=== PATIENT | male | born 1945 | race Caucasian/White ===

== ENCOUNTER 2020-03-03 16:54 | Emergency (ER) | payer MEDICARE, OTHER, SELFPAY ==
[2020-03-03 17:00] VITALS: BP 177/81; PULSE 80; RESP 22; TEMP 36.7; O2SAT 98
--- NOTE | 2020-03-03 17:14 | DI.RAD.S_ITS ---
PROCEDURE: XR CHEST 2V INDICATIONS: sob, productive cough TECHNIQUE: 2 views of the chest were acquired. COMPARISON: None. FINDINGS: Surgical changes and devices: None. Lungs and pleura: Subtle areas of increased density are identified within the right infrahilar region and the left costophrenic angle. No large effusion or pneumothorax is evident. Mediastinum: Mediastinal contours are normal. Heart size is normal. Bones and chest wall: No suspicious bony abnormalities. Multiple anterior discussed with the complexes are identified, suggesting diffuse idiopathic skeletal hyperostosis. Soft tissues appear unremarkable. IMPRESSION: Probable bibasilar pneumonia. Dictated by: Mason Hilton M.D. on 03/03/2020 at 16:48 Approved by: Mason Hilton M.D. on 03/03/2020 at 16:52
--- NOTE | 2020-03-03 17:45 | ED_ITS ---
HPI - SOB/Dyspnea <Margarita Maldonadomer, [employer] - Last Filed: 03/03/20 19:55> General Chief Complaint: Shortness of Breath/Dyspnea Stated Complaint: Thinks Pneumonia, SOB, Cough Time Seen by Provider: 03/03/20 17:05 Source: patient Mode of arrival: Ambulatory Limitations: no limitations History of Present Illness HPI Narrative: The patient is a 74-year-old male former smoker who denies pertinent medical history presents with a chief complaint of 7 days of productive cough. He states on Wednesday started having fevers 101, was seen at [facility] and discharged. He states he has been self warranting at home since the of last month, though he has had family members go at discharge often bring him back things. He denies any nausea vomiting or diarrhea. He denies any chest pain. He does complain of tight breathing, productive cough, reported fevers. The patient has not taken anything at home to feel better. He denies any history of COPD, though admits to a 30 year smoking history. He quit in 1991. Related Data Home Medications Medication Instructions Recorded Confirmed MULTIVITAMIN 1 tab PO QDAY #0 12/08/16 05/04/18 cholecalciferol (vitamin D3) 1,000 unit PO QDAY #0 12/08/16 05/04/18 [Vitamin D3] ibuprofen [Advil] 200 mg PO Q4HP PRN #0 12/08/16 05/04/18 carboxymethylcellulose sodium drp #0 02/22/18 05/04/18 [Refresh Tears] vitamin E 400 unit PO QDAY #0 02/22/18 05/04/18 Previous Rx's Medication Instructions Recorded lidocaine 1 josefina R QIDP PRN #30 gm 02/24/18 azithromycin See Rx Instructions .ROUTE 03/03/20 .COMPLEX #6 tab doxycycline hyclate 100 mg PO BID #14 cap 03/03/20 Allergies Allergy/AdvReac Type Severity Reaction Status Date / Time fluticasone Allergy Severe TROUBLE Unverified 05/04/18 14:19 [From FLOVENT DISKUS] BREATHING Penicillins Allergy Severe SWELLING Unverified 05/04/18 14:19 lisinopril [LISINOPRIL] AdvReac Severe IMPAIRED Unverified 05/04/18 14:19 BREATHING mold [MOLD] AdvReac Severe IMPAIRED Unverified 05/04/18 14:19 BREATHING Review of Systems <Margarita Hernandez [facility] - Last Filed: 03/03/20 19:55> Review of Systems Narrative: GENERAL: See HPI HEENT: Denies sinus pain, ear pain, sore throat, difficulty swallowing, dizziness. RESPIRATORY: See HPI CARDIOVASCULAR: Denies chest pain, palpitations, orthopnea, edema, GASTROINTESTINAL: Denies nausea, vomiting, abdominal pain, diarrhea, constipation, melena. : Denies dysuria, frequency, incontinence, hematuria, urinary retention. MUSCULOSKELETAL: denies weakness, joint pain, or bony pain SKIN: Denies rash, skin lesions, or other NEUROLOGIC: Denies weakness, headache, numbness, change in speech, confusion, seizures, incoordination. PSYCHIATRIC: No concerning psychosocial issues. 12 point review of systems is negative except for those stated above Patient History <[facility] Last Filed: 03/03/20 19:55> Social History Smoking Status: Former smoker Smoking Status: Former smoker alcohol intake frequency: holidays/special occasions only Substance Use Type: does not use Exam <Margarita Hernandez [facility] - Last Filed: 03/03/20 19:55> Narrative Exam Narrative: GENERAL: This is a well-nourished, well-developed patient, anxious appearing HEAD: Atraumatic. Normocephalic. No temporal or scalp tenderness. EYES: Pupils equal round and reactive. Extraocular motions intact. No scleral icterus. No injection or drainage. ENT: Nose without bleeding, purulent drainage or septal hematoma. Throat without erythema, tonsillar hypertrophy or exudate. Uvula midline. Airway patent. NECK: Trachea midline. No JVD or lymphadenopathy. Supple, nontender, no meningeal signs. CARDIOVASCULAR: Regular rate and rhythm RESPIRATORY: Clear to auscultation. Breath sounds equal bilaterally. No wheezes, rales, or rhonchi. Speaking tangential, very full sentences. No increased re spiratory effort. Laying relaxed in bed. No accessory muscle use. GASTROINTESTINAL: Abdomen soft, non-tender, nondistended. No hepato- splenomegaly, or palpable masses. No guarding. EXTREMITIES: No clubbing, cyanosis, or edema. No joint tenderness, effusion, or edema noted. BACK: Nontender without deformity or crepitance. No flank tenderness. NEURO: AOx3. SKIN: No rash or erythema on visible skin Initial Vital Signs Initial Vital Signs: Vital Signs Temperature 98.0 F 03/03/20 17:00 Pulse Rate 80 03/03/20 17:00 Respiratory Rate 22 03/03/20 17:00 Blood Pressure 177/81 H 03/03/20 17:00 Pulse Oximetry 98 03/03/20 17:00 <Kenny Segal DO - Last Filed: 03/04/20 03:03> Initial Vital Signs Initial Vital Signs: Vital Signs Temperature 98.0 F 03/03/20 17:00 Pulse Rate 80 03/03/20 17:00 Respiratory Rate 22 03/03/20 17:00 Blood Pressure 177/81 H 03/03/20 17:00 Pulse Oximetry 98 03/03/20 17:00 Scores <JULIA Flynn - Last Filed: 03/03/20 19:55> CURB-65 Confusion: No BUN >19mg/dL (>7mmol/L): No Respiratory rate greater or equal to 30: No SBP <90mmHg or DBP less or equal to 60mmHg: No Age 65 or Older: Yes CURB-65 Total: 1 Score 0-1 Outpatient care, Score 2 Inpt vs. Obs, Score 3 or over Inpt admit with ICU for score of 4-5 GCS [place] coma scale eye opening: Spontaneous Dorys coma scale verbal response: Orientated Dorys coma scale motor response: Obey commands Dorys coma scale total score: 15 Course <JULIA Flynn - Last Filed: 03/03/20 19:55> Orders Ordered: ED Orders 03/03/20 18:15 Complete Blood Count AUTO DIFF Stat Comprehensive Metabolic Panel Stat Magnesium Stat NT-proBNP (BNP-Adult 18+) Stat Discontinued Medications Doxycycline Hyclate (Vibramycin) 100 mg PO NOW ONE Stop: 03/03/20 19:00 Last Admin: 03/03/20 19:33 Dose: 100 mg Documented by: PRETTY Reevaluation(s) Reevaluation #1: Discussed x-ray findings with patient and concern for pneumonia. Covid 19 was swab done. Patient remains oxygenating well in the emergency department Time: 18:12 Vital Signs Vital signs: Vital Signs - 8 hr 03/03/20 19:14 Pulse Rate 62 Pulse Oximetry 97 <Kenny Segal DO - Last Filed: 03/04/20 03:03> Orders Ordered: ED Orders 03/03/20 18:15 Complete Blood Count AUTO DIFF Stat Comprehensive Metabolic Panel Stat Magnesium Stat NT-proBNP (BNP-Adult 18+) Stat Discontinued Medications Doxycycline Hyclate (Vibramycin) 100 mg PO NOW ONE Stop: 03/03/20 19:00 Last Admin: 03/03/20 19:33 Dose: 100 mg Documented by: PRETTY Vital Signs Vital signs: Vital Signs - 8 hr 03/03/20 19:14 Pulse Rate 62 Pulse Oximetry 97 MDM - SOB/Dyspnea <ALICE FlynnBC - Last Filed: 03/03/20 19:55> Lab Data Result diagrams: 03/03/20 18:15 03/03/20 18:15 Labs: Lab Results 03/03/20 03/03/20 Range/Units 18:15 18:15 WBC 6.1 (4.5-11.0) X10^3/uL RBC 4.94 (4.5-5.9) X10^6/uL Hgb 15.2 (13.5-17.5) g/dL Hct 44.7 (41-53) % MCV 90.3 (80-100) fL MCH 30.8 (26-34) PG MCHC 34.0 (30-36) % RDW 13.7 (11.6-14.8) % Plt Count 260 (150-400) X10^3/uL Neut % (Auto) 63.1 (50-75) % Lymph % (Auto) 26.0 (25-40) % Lamb % (Auto) 7.9 (3-14) % Eos % (Auto) 2.1 (2-4) % Baso % (Auto) 0.9 (0-2) % Neut # (Auto) 3800 (5773-0228) /uL Lymph # (Auto) 1600 (5361-1264) /uL Lamb # (Auto) 500 (0-900) /uL Eos # (Auto) 100 (0-450) /uL Baso # (Auto) 100 (0-100) /uL Sodium 142 (137-145) mmol/L Potassium 4.4 (3.4-5.1) mmol/L Chloride 106 (98-107) mmol/L Carbon Dioxide 27 (22-32) mmol/L BUN 16 (9-20) mg/dL Creatinine 0.79 (0.66-1.25) mg/dL Estimated GFR > 60.0 (>60) mL/min BUN/Creatinine Ratio 20.3 (6-22) Glucose 104 (80-110) mg/dL Calcium 10.6 H (8.4-10.2) mg/dL Magnesium 2.5 H (1.6-2.3) mg/dL Total Bilirubin 0.5 (0.2-1.3) mg/dL AST 24 (17-59) IU/L ALT 16 (<50) IU/L Alkaline Phosphatase 58 (38-126) U/L NT-Pro-B Natriuret Pep 101 (<450) pg/mL Total Protein 6.7 (6.3-8.2) g/dL Albumin 4.0 (3.5-5.0) g/dL Globulin 2.7 (1.7-4.1) g/dL Albumin/Globulin Ratio 1.5 (1.0-2.8) Imaging Data Chest x-ray: Radiologist's Impression: [address] [place] [address] XRay Report Signed Patient: Kip Quiles LMR#: [id number] : 4Acct:[id number] Age/Sex: 74 / MDate of Service: 03/03/20 Loc: ED Accession Number: [id number] Procedure: XR chest 2V [facility]ing [facility] PROCEDURE: XR CHEST 2V INDICATIONS: sob, productive cough TECHNIQUE: 2 views of the chest were acquired. COMPARISON: None. FINDINGS: Surgical changes and devices: None. Lungs and pleura: Subtle areas of increased density are identified within the right infrahilar region and the left costophrenic angle. No large effusion or pneumothorax is evident. Mediastinum: Mediastinal contours are normal. Heart size is normal. Bones and chest wall: No suspicious bony abnormalities. Multiple anterior discussed with the complexes are identified, suggesting diffuse idiopathic skeletal hyperostosis. Soft tissues appear unremarkable. IMPRESSION: Probable bibasilar pneumonia. Dictated by: Mason Hilton M.D. on 03/03/2020 at 16:48 Approved by: Mason Hilton M.D. on 03/03/2020 at 16:52 ECG Data Attestation: I personally reviewed and interpreted this ECG as follows: Interpretation: SR 67. P.r. interval 169. QRS 124. Viewed by Dr. Puga no prior EKGs MDM Narrative Medical decision making narrative: The patient is a 74-year-old male who presents with a chief complaint of a productive cough as well as shortness of breath. His lab work is overall benign, no leukocytosis, negative BNP, good renal function. His chest x-ray is concerning for bibasilar pneumonia, given his complaints of cough, shortness of breath and fever he was tested for coronavirus. He does not need to be hospitalized as per curb 65 criteria. He is oxygenating well in the emergency department, was evaluated by respiratory therapist as well. I discussed at length the importance of following up with primary care provider in the next few days. Discussed coming back to the emergency department for any acute concerns such as increased shortness of breath etcetera. I did discuss with the patient that he has to self isolate until his covid results come back either positive or negative, covering cough, etc.. Patient has no questions or concerns upon discharge and states understanding of return precautions as well as follow-up care. <Kenny Segal, DO - Last Filed: 03/04/20 03:03> Lab Data Labs: Lab Results 03/03/20 03/03/20 Range/Units 18:15 18:15 WBC 6.1 (4.5-11.0) X10^3/uL RBC 4.94 (4.5-5.9) X10^6/uL Hgb 15.2 (13.5-17.5) g/dL Hct 44.7 (41-53) % MCV 90.3 (80-100) fL MCH 30.8 (26-34) PG MCHC 34.0 (30-36) % RDW 13.7 (11.6-14.8) % Plt Count 260 (150-400) X10^3/uL Neut % (Auto) 63.1 (50-75) % Lymph % (Auto) 26.0 (25-40) % Lamb % (Auto) 7.9 (3-14) % Eos % (Auto) 2.1 (2-4) % Baso % (Auto) 0.9 (0-2) % Neut # (Auto) 3800 (4674-8930) /uL Lymph # (Auto) 1600 (5042-1751) /uL Lamb # (Auto) 500 (0-900) /uL Eos # (Auto) 100 (0-450) /uL Baso # (Auto) 100 (0-100) /uL Sodium 142 (137-145) mmol/L Potassium 4.4 (3.4-5.1) mmol/L Chloride 106 (98-107) mmol/L Carbon Dioxide 27 (22-32) mmol/L BUN 16 (9-20) mg/dL Creatinine 0.79 (0.66-1.25) mg/dL Estimated GFR > 60.0 (>60) mL/min BUN/Creatinine Ratio 20.3 (6-22) Glucose 104 (80-110) mg/dL Calcium 10.6 H (8.4-10.2) mg/dL Magnesium 2.5 H (1.6-2.3) mg/dL Total Bilirubin 0.5 (0.2-1.3) mg/dL AST 24 (17-59) IU/L ALT 16 (<50) IU/L Alkaline Phosphatase 58 (38-126) U/L NT-Pro-B Natriuret Pep 101 (<450) pg/mL Total Protein 6.7 (6.3-8.2) g/dL Albumin 4.0 (3.5-5.0) g/dL Globulin 2.7 (1.7-4.1) g/dL Albumin/Globulin Ratio 1.5 (1.0-2.8) Discharge Plan Departure Patient Disposition: Home Clinical Impression: Community acquired pneumonia Qualifiers: Laterality: unspecified laterality Qualified Code(s): J18.9 - Pneumonia, uns pecified organism Discharge Date/Time: 03/03/20 19:45 Instructions: How to Use an Incentive Spirometer, DI for Pneumonia -- Adult, DI for Cough -- Adult Activity Restrictions/Additional Instructions: Thank you for trusting us with your care today. Your chest x-ray is indicating pneumonia in the bases of your lungs. I have sent a prescription for 2 different antibiotics to [facility] pharmacy. Please take these with probiotics or yogurt. You have also received teaching from a respiratory therapist on several respiratory devices. Please use these devices in order to help keep your lungs open. We also tested you for Covid19 As discussed, please self quarantine until the results come back either positive or negative. We will call you. Please wash your hands for your cough and sneezes. Please follow-up with primary care provider in the next few days. Please come back to the emergency department for any acute concerns such as significant shortness of breath etcetera Prescriptions: New azithromycin 250 mg tablet See Rx Instructions .ROUTE .COMPLEX Qty: 6 RF: 0 doxycycline hyclate 100 mg capsule 100 mg PO BID Qty: 14 RF: 0 No Action MULTIVITAMIN 1 tab PO QDAY Qty: 0 RF: 0 cholecalciferol (vitamin D3) [Vitamin D3] 1,000 UNIT tablet 1,000 unit PO QDAY Qty: 0 RF: 0 ibuprofen [Advil] 200 MG tablet 200 mg PO Q4HP PRNQty: 0 RF: 0 vitamin E 400 UNIT capsule 400 unit PO QDAY Qty: 0 RF: 0 carboxymethylcellulose sodium [Refresh Tears] 15 ML drops Qty: 0 RF: 0 lidocaine 5 % cream 1 josefina R QIDP PRNQty: 30 RF: 2 Referrals: [facility] [Provider Group] <Kenny Segal DO - Last Filed: 03/04/20 03:03> Cosign ED Attending Alexature Attestation: I was immediately available in the department for consultation. This documentation has been reviewed and I agree with assessment and plan. Supervised by Kenny Segal DO
[2020-03-03 18:00] VITALS: BP 161/74; PULSE 65; RESP 19; O2SAT 97
[2020-03-03 18:29] LABS: Add Manual Diff / Slide Review NO; Basophils Absolute Auto 100 /uL (0-100); Basophils Percent Auto 0.9 % (0-2); Eosinophils Absolute Auto 100 /uL (0-450); Eosinophils Percent Auto 2.1 % (2-4); Hematocrit 44.7 % (41-53); Hemoglobin 15.2 g/dL (13.5-17.5); Lymphocytes Absolute Auto 1600 /uL (1100-4500); Mean Corpuscular Hemoglobin 30.8 PG (26-34); Mean Corpuscular Volume 90.3 fL (80-100); Monocytes Absolute Auto 500 /uL (0-900); Monocytes Percent Auto 7.9 % (3-14); Neutrophils Absolute Auto 3800 /uL (1500-7000); Neutrophils Percent Auto 63.1 % (50-75); Platelet Count 260 X10^3/uL (150-400); Red Blood Cell Count 4.94 X10^6/uL (4.5-5.9); Red Cell Distribution Width 13.7 % (11.6-14.8); White Blood Cell Count 6.1 X10^3/uL (4.5-11.0)
--- NOTE | 2020-03-03 18:35 | PC.NURSE ---
pt reports, had worsening coughing wednesday, seen at [facility], advised to take tylenol and motrin, if not better in 72 hours to follow up with md. pt reports severe coughing today with yellow, to reyes sputum and also with abdominal distention causing shortness of breath, abdominal better at this time. denies fever at home states, 98.0. has not had tylenol for 12 hours.
[2020-03-03 18:36] LABS: Alanine Aminotransferase 16 IU/L (<50); Albumin Globulin Ratio 1.5 (1.0-2.8); Alkaline Phosphatase 58 U/L (38-126); Aspartate Aminotransferase 24 IU/L (17-59); BUN Creatinine Ratio 20.3 (6-22); Bilirubin Total 0.5 mg/dL (0.2-1.3); Blood Urea Nitrogen 16 mg/dL (9-20); Calcium 10.6 mg/dL (8.4-10.2); Carbon Dioxide 27 mmol/L (22-32); Chloride 106 mmol/L (98-107); Estimated Glomerular Filt Rate > 60.0 mL/min (>60); Globulin 2.7 g/dL (1.7-4.1); Glucose 104 mg/dL (80-110); HEMOLYSIS 17 (0-50); Magnesium 2.5 mg/dL (1.6-2.3); Potassium 4.4 mmol/L (3.4-5.1); Sodium 142 mmol/L (137-145); Total Protein 6.7 g/dL (6.3-8.2)
[2020-03-03 18:45] LABS: NT-proBNP (BNP-Adult 18+) 101 pg/mL (<450)
[2020-03-03 19:14] VITALS: PULSE 62; O2SAT 97
[2020-03-03] MEDS: DOXYCYCLINE HYCLATE 100 MG TABLET PO (19:33)
[2020-03-06 01:10] LABS: COVID19 Sendout Not Detected (Not Detected)
== END 2020-03-03 19:45 | disposition home or self-care (01) ==
PROVIDERS: Emergency Provider Nurse Practitioner Family
DX: J18.9 Pneumonia, unspecified organism (principal); R50.9 Fever, unspecified; R06.02 Shortness of breath
CPT/HCPCS: 71046; 80053; 83735; 83880; 85025; 87635; 93005; 94667; 99283; 99284

== ENCOUNTER 2024-07-19 16:49 | Emergency (ER) | payer MEDICARE, OTHER, SELFPAY ==
[2024-07-19 16:52] VITALS: BP 195/79; PULSE 59; RESP 14; TEMP 36.9; O2SAT 98
[2024-07-19 17:35] LABS: Bilirubin Urine UA NEGATIVE (NEGATIVE); Glucose Urine UA NEGATIVE (Negative); Ketones Urine UA NEGATIVE (NEGATIVE); Leukocyte Esterase Urine UA TRACE (NEGATIVE); Nitrite Urine UA NEGATIVE (Negative); Occult Blood Urine UA 3+ (Negative); Protein Urine UA 1+ (Negative); Urobilinogen Urine UA 0.2 E.U./dL (0.2)
[2024-07-19 17:39] LABS: Appearance Urine UA CLOUDY; Color Urine UA GREEN
[2024-07-19 17:43] LABS: Amorphous Sediment Urine 2+; Bacteria Urine Few (2-10); Culture Indicated Urine Specimen Cultured; RBC Urine 30-100/HPF (0-5/HPF); Squamous Epithelial Cell Urine 0-1 /HPF (0-5/HPF); Urine Volume 10mL (spun); WBC Urine 0-1/HPF (0-5/HPF)
--- NOTE | 2024-07-19 18:43 | ED.GENADULT ---
HPI - General Adult General Chief complaint: Urogenital-Male Stated complaint: blood in urine t-1 Time Seen by Provider: 07/19/24 17:59 Source: patient Mode of arrival: Ambulatory History of Present Illness HPI narrative: Patient is a 78-year-old male who is here for evaluation blood in his urine. He stated that overnight last night he got up to use the restroom and noticed that it was blood-tinged. He urinated once again earlier in the morning and stated that there was bessie blood. He reports no pain with urination. He states he does urinate frequently. He was told many years ago that he would ruptured his bladder and is somewhat convinced that he still has a ruptured bladder. He occasionally has left testicle swelling that seems to come and go. That is not an issue today. He was not on blood thinners. No vomiting. No change in bowel habits. No fevers. He does not see a urologist on a regular basis. Related Data Home Medications Medication Instructions Recorded Confirmed MULTIVITAMIN 1 tab PO QDAY ##0 12/08/16 05/04/18 cholecalciferol (vitamin D3) 25 1,000 unit PO QDAY ##0 12/08/16 05/04/18 mcg (1,000 unit) tablet (Vitamin D3) ibuprofen 200 mg tablet (Advil) 200 mg PO Q4HP PRN ##0 12/08/16 05/04/18 carboxymethylcellulose sodium 0.5 drp ##0 02/22/18 05/04/18 % eye drops (Refresh Tears) vitamin E 268 mg (400 unit) capsule 400 unit PO QDAY ##0 02/22/18 05/04/18 Previous Rx's Medication Instructions Recorded lidocaine 5 % topical cream 1 josefina R QIDP PRN ##30 02/24/18 azithromycin 250 mg tablet See Rx Instructions PO .COMPLEX #6 03/03/20 tabs doxycycline hyclate 100 mg capsule 100 mg PO BID #14 caps 03/03/20 azithromycin 250 mg tablet See Rx Instructions PO .COMPLEX #6 03/04/20 tabs doxycycline hyclate 100 mg capsule 100 mg PO BID #14 caps 03/04/20 Allergies Allergy/AdvReac Type Severity Reaction Status Date / Time fluticasone Allergy Severe TROUBLE Verified 07/19/24 16:52 [From FLOVENT DISKUS] BREATHING Penicillins Allergy Severe SWELLING Verified 07/19/24 16:52 lisinopril [LISINOPRIL] AdvReac Severe IMPAIRED Verified 07/19/24 16:52 BREATHING mold [MOLD] AdvReac Severe IMPAIRED Verified 07/19/24 16:52 BREATHING Review of Systems Review of Systems ROS Unobtainable: All systems reviewed & are unremarkable except as noted in HPI and below Patient History Social History Smoking Status: Former smoker Smoking Status: Former smoker alcohol intake frequency: holidays/special occasions only Substance Use Type: does not use Exam Initial Vital Signs Initial Vital Signs: Vital Signs Temperature 98.5 F 07/19/24 16:52 Pulse Rate 59 L 07/19/24 16:52 Respiratory Rate 14 07/19/24 16:52 Blood Pressure 195/79 H 07/19/24 16:52 Pulse Oximetry 98 07/19/24 16:52 Oxygen Delivery Method Room Air 07/19/24 16:52 Const General: cooperative, comfortable and No ill appearing HENMT Head: normal to inspection and normocephalic Resp Effort & Inspection: normal respiratory effort Cardio Rate: regular rate GI Inspection: normal to inspection and non-distended Palpation: soft, No firm and No tender Back/Spine/Pelvis Back: No CVA tenderness Skin General: no rashes or lesions noted Neuro General: patient alert, patient awake and moves all extremities Extrem General: capillary refill normal Course Orders Ordered: ED Orders 07/19/24 17:03 Urinalysis and Microscopic Stat Urine Culture Stat Discontinued Medications Lidocaine HCl (Lidocaine 2% (Glydo) 6 Ml Gel) 6 ml TOP NOW ONE Stop: 07/19/24 18:51 Last Admin: 07/19/24 19:11 Dose: 6 ml Documented By: RB Vital Signs Vital signs: Vital Signs - 8 hr 07/19/24 16:52 07/19/24 19:08 07/19/24 19:11 Temperature 98.5 F Pulse Rate 59 L 53 L Respiratory Rate 14 Blood Pressure 195/79 H 163/69 H Pulse Oximetry 98 97 Oxygen Delivery Method Room Air 07/19/24 19:11 07/19/24 19:30 07/19/24 19:30 Temperature Pulse Rate 53 L 59 L Respiratory Rate 18 Blood Pressure 154/74 H Pulse Oximetry 97 96 Oxygen Delivery Method 07/19/24 19:58 Temperature 98.3 F Pulse Rate 59 L Respiratory Rate 18 Blood Pressure 153/60 H Pulse Oximetry 98 Oxygen Delivery Method Room Air Medical Decision Making Lab Data Labs: Lab Results 07/19/24 Range/Units 17:03 Urine Color Green Urine Appearance Cloudy Urine pH 7.0 (4.5-8.0) Ur Specific Sophia 1.010 (1.000-1.035) Urine Protein 1+ H (Negative) Urine Glucose (UA) Negative (Negative) g/dL Urine Ketones Negative (NEGATIVE) Urine Occult Blood 3+ H (Negative) Urine Nitrate Negative (Negative) Urine Bilirubin Negative (NEGATIVE) Urine Urobilinogen 0.2 (0.2) E.U./dL Ur Leukocyte Esterase Trace H (NEGATIVE) Urine RBC 30-100/hpf H (0-5/HPF) Urine WBC 0-1/hpf (0-5/HPF) Ur Squamous Epith Cells 0-1 /hpf (0-5/HPF) Amorphous Sediment 2+ Urine Bacteria Few (2-10) H (None) Ur Culture Indicated? Specimen cultured Vol Urine Centrifuged 10ml (spun) MDM Narrative Medical decision making narrative: Vital signs are unremarkable. Urinalysis does red blood cells and leukocyte esterase but no white blood cells. I have low suspicion for infection. He was not on anticoagulation. Upon further questioning of the patient he does urinate frequently. He states he does not empty his bladder all the way. A bedside bladder scan showed that he had greater than 1 L of urine in his bladder. I discuss this with him. A Reed catheter was placed. More than 1.5 L resulted. He reports that his abdomen feels much less distended and he does feel better. I do feel that the patient should leave the Reed catheter in place. There is no indication for antibiotics currently. A urine culture is pending at the time of his discharge. He was going to need follow-up with Urology. He was given phone numbers for this. He was given return precautions and follow-up instructions. He expressed understanding and agreement. Discharge Plan Departure Patient Disposition: Home Clinical Impression: Hematuria, Acute urinary retention Instructions: How to Care for Your Reed Catheter -- Male, DI for Urinary Retention in Men Activity Restrictions/Additional Instructions: Continue to take all of your medications as directed. I do recommend that tomorrow you contact the urologist that the number provided below for a follow-up. Return to the emergency department for new or worsening symptoms. Prescriptions: No Action MULTIVITAMIN 1 tab PO QDAY Qty: 0 cholecalciferol (vitamin D3) [Vitamin D3] 1,000 UNIT tablet 1,000 unit PO QDAY Qty: 0 ibuprofen [Advil] 200 MG tablet 200 mg PO Q4HP PRNQty: 0 vitamin E 400 UNIT capsule 400 unit PO QDAY Qty: 0 carboxymethylcellulose sodium [Refresh Tears] 15 ML drops Qty: 0 lidocaine 5 % cream 1 josefina R QIDP PRNQty: 30 2RF azithromycin 250 mg tablet See Rx Instructions .ROUTE .COMPLEX Qty: 6 0RF Rx Instructions: take 500 mg today (day 1), then 250 mg for 4 days (days 2-5) doxycycline hyclate 100 mg capsule 100 mg PO BID Qty: 14 0RF doxycycline hyclate 100 mg capsule 100 mg PO BID Qty: 14 0RF azithromycin 250 mg tablet See Rx Instructions .ROUTE .COMPLEX Qty: 6 0RF Rx Instructions: take 500 mg today (day 1), then 250 mg for 4 days (days 2-5) Referrals: Edd Pearson MD [Physician] - Stand Alone Forms: Patient Portal/API
[2024-07-19 19:08] VITALS: PULSE 53; O2SAT 97
[2024-07-19 19:11] VITALS: BP 163/69; PULSE 53; O2SAT 97
[2024-07-19] MEDS: LIDOCAINE 2% (GLYDO) 6 ML GEL TOP (19:11)
[2024-07-19 19:30] VITALS: BP 154/74; PULSE 59; RESP 18; O2SAT 96
[2024-07-19 19:58] VITALS: BP 153/60; PULSE 59; RESP 18; TEMP 36.8; O2SAT 98
== END 2024-07-19 20:01 | disposition home or self-care (01) ==
PROVIDERS: Student in an Organized Health Care Education/Training Program; Emergency Provider Emergency Medicine
DX: R31.9 Hematuria, unspecified (principal); R33.8 Other retention of urine
CPT/HCPCS: 81001; 87086; 99283

== ENCOUNTER → 2024-08-03 14:08 | Outpatient (CLI) | payer MEDICARE, OTHER, SELFPAY ==
--- NOTE | 2024-08-03 14:11 | DI.CT.S_ITS ---
PROCEDURE: CT ABDOMEN PELVIS WO/W CON INDICATIONS: Gross hematuria TECHNIQUE: After the administration of oral contrast, 5 mm thick sections acquired from the diaphragms to the iliac crests. After the administration of intravenous contrast, 5 mm thick sections acquired from the diaphragms to the symphysis. 5 mm thick coronal and sagittal reformats were acquired. For radiation dose reduction, the following was used: automated exposure control, adjustment of mA and/or kV according to patient size. COMPARISON: None. FINDINGS: Image quality: Diagnostic Lower chest: Basal atelectasis/scarring. Mild nonspecific distal esophageal wall thickening and trace hiatal hernia Normal heart size. Coronary calcifications Liver: Unremarkable Gallbladder and biliary system: Unremarkable, nondilated Pancreas: No ductal dilation Spleen: Nonenlarged Adrenals: No discrete nodules Kidneys: Multiple renal calculi, the largest in the renal pelvises measuring 2.9 x 1.9 x 1.8 cm on the right and 2.4 x 1.7 x 1.4 cm on the left. Hounsfield units over 700 bilaterally Subcentimeter lesions are too small to characterize, Bosniak 2, usually cysts. No solid renal mass. No other ureter filling defects mildly ectatic ureters bilaterally. Moderately ectatic renal pelvises Vessels and lymph nodes: Main portal vein is patent. 3.6 cm abdominal aortic aneurysm is present. No pathologic lymph nodes by size criteria. Nonspecific pelvic and inguinal lymph nodes are present, which may be reactive. Bowel and peritoneum: No bowel obstruction or pathologic ascites. Large rectal stool ball Body wall: Fat containing inguinal hernias Pelvis: Trabeculated bladder wall thickening. Reed in place. Prostate is not well assessed on this study Bones: There are degenerative changes. No acute or suspicious osseous finding IMPRESSION: No solid renal mass. Multiple bilateral renal calculi, the largest in the renal pelvises as described above with moderate pelviectasis. Mildly ectatic ureters. No definite filling defect. Thickened bladder wall with Reed in place. Consider cystoscopy correlation in the setting of hematuria. Abdominal aortic aneurysm at 3.6 cm. Other findings above. Dictated by: Jarred Maldonado M.D. on 08/04/2024 at 10:58 Approved by: Jarred Maldonado M.D. on 08/04/2024 at 11:07
[2024-08-03 15:18] LABS: Blood Urea Nitrogen 19 mg/dL (9-20); Calcium 10.1 mg/dL (8.4-10.2); Carbon Dioxide 30 mmol/L (22-32); Chloride 100 mmol/L (98-107); Estimated Glomerular Filt Rate > 60 mL/min (>60); Glucose 105 mg/dL (80-110); HEMOLYSIS < 15 (0-50); Sodium 132 mmol/L (137-145)
== END ==
PROVIDERS: PCP Family Medicine; Referring Provider Urology; Visit Provider Urology
DX: N20.0 Calculus of kidney (principal); N28.89 Other specified disorders of kidney and ureter; I71.40 Abdominal aortic aneurysm, without rupture, unspecified; K40.20 Bilateral inguinal hernia, without obstruction or gangrene, not specified as recurrent; R31.9 Hematuria, unspecified; R33.8 Other retention of urine; Z96.0 Presence of urogenital implants
CPT/HCPCS: 36415; 74178; 80048; Q9967

== ENCOUNTER → 2024-08-04 14:54 | Outpatient (CLI) | payer MEDICARE, OTHER, SELFPAY | PROVIDERS: PCP Family Medicine; Visit Provider Urology | DX: R39.9 Unspecified symptoms and signs involving the genitourinary system (principal) | CPT/HCPCS: 87077; 87086; 87186 ==

== ENCOUNTER → 2024-08-04 15:27 | Outpatient (CLI) | payer MEDICARE, OTHER, SELFPAY ==
--- NOTE | 2024-08-04 15:29 | DI.RAD.S_ITS ---
PROCEDURE: XR KUB INDICATIONS: Bilateral renal calculi TECHNIQUE: One view of the abdomen acquired. COMPARISON: [facility], CT, CT ABDOMEN PELVIS WO/W CON, 08/03/2024, 15:41. FINDINGS: 3.4 cm stone projecting over the expected location of the right renal pelvis. 2.8 cm stone projecting over the expected location of the left renal pelvis. Paucity of air in the small bowel, a nonspecific finding. Large stool burden with large amount of stool in the rectum. Limited evaluation for free intraperitoneal air given supine. IMPRESSION: Bilateral renal stones. Dictated by: Dayan Chamorro M.D. on 08/04/2024 at 18:14 Approved by: Dayan Chamorro M.D. on 08/04/2024 at 18:16
== END ==
PROVIDERS: PCP Family Medicine; Referring Provider Urology; Visit Provider Urology
DX: N20.0 Calculus of kidney (principal); R39.9 Unspecified symptoms and signs involving the genitourinary system
CPT/HCPCS: 74018; 87077; 87086; 87186

== ENCOUNTER → 2024-08-16 15:03 | Outpatient (CLI) | payer MEDICARE, OTHER, SELFPAY | PROVIDERS: PCP Family Medicine; Referring Provider Urology; Visit Provider Urology | DX: N20.0 Calculus of kidney (principal); N40.1 Benign prostatic hyperplasia with lower urinary tract symptoms; N13.8 Other obstructive and reflux uropathy; R33.9 Retention of urine, unspecified; R39.9 Unspecified symptoms and signs involving the genitourinary system; Z97.8 Presence of other specified devices | CPT/HCPCS: 51798; 52000; 81002; 87077; 87086; 87186; 99214 ==

== ENCOUNTER → 2024-08-25 15:07 | Outpatient (CLI) | payer MEDICARE, OTHER, SELFPAY | PROVIDERS: PCP Family Medicine; Visit Provider Urology | DX: N40.1 Benign prostatic hyperplasia with lower urinary tract symptoms (principal); N13.8 Other obstructive and reflux uropathy; R33.9 Retention of urine, unspecified | CPT/HCPCS: 51798; 81002; 87086 ==

== ENCOUNTER → 2024-09-20 11:21 | Outpatient (CLI) | payer MEDICARE, OTHER, SELFPAY | PROVIDERS: PCP Family Medicine; Visit Provider Urology | DX: N40.1 Benign prostatic hyperplasia with lower urinary tract symptoms (principal); N13.8 Other obstructive and reflux uropathy | CPT/HCPCS: 51798; 81002; 87086; 99214 ==

== ENCOUNTER → 2024-10-20 11:25 | Outpatient (CLI) | payer MEDICARE, OTHER, SELFPAY | PROVIDERS: PCP Family Medicine; Visit Provider Urology | DX: R33.9 Retention of urine, unspecified (principal); N40.1 Benign prostatic hyperplasia with lower urinary tract symptoms; N13.8 Other obstructive and reflux uropathy; Z87.898 Personal history of other specified conditions | CPT/HCPCS: 87086 ==

== ENCOUNTER → 2024-11-20 11:55 | Outpatient (CLI) | payer MEDICARE, OTHER, SELFPAY ==
--- NOTE | 2024-11-20 11:58 | DI.US.S_ITS ---
PROCEDURE: US SCROTUM INDICATIONS: Scrotal enlargement TECHNIQUE: Real-time scanning was performed of the scrotum and testicles, with image documentation. Color and pulse Doppler interrogation was performed of both testicles. COMPARISON: None. FINDINGS: Right: Testicle is normal in size at 4.8 x 4.2 x 2.6 cm, and homogenous in echotexture. Epididymis is normal in overall size and morphology. No hydrocele. Mild varicocele. Overlying scrotal skin is normal in thickness. Left: Testicle is normal in size at 4.4 x 3.1 x 2.8 cm, and homogeneous in echotexture. Epididymis is normal in overall size and morphology. Simple epididymal head cyst measures 0.6 cm Moderate hydrocele. Mild varicocele. Overlying scrotal skin is normal in thickness. No inguinal hernia is seen. Doppler: Color and pulse Doppler demonstrate normal and symmetric arterial flow in both testicles. IMPRESSION: 1. No signs of testicular torsion or epididymitis. 2. Moderate left hydrocele. 3. Bilateral varicoceles. Approved by: Dannie Shay M.D. on 11/20/2024 at 17:38
== END ==
LOC: US 11:57
PROVIDERS: PCP Family Medicine; Referring Provider Urology; Visit Provider Urology
DX: N43.3 Hydrocele, unspecified (principal); N50.89 Other specified disorders of the male genital organs; I86.1 Scrotal varices
CPT/HCPCS: 76870

== ENCOUNTER → 2024-12-06 13:37 | Outpatient (CLI) | payer MEDICARE, OTHER, SELFPAY ==
[2024-12-06 14:01] LABS: Appearance Urine UA CLEAR; Bilirubin Urine UA NEGATIVE (NEGATIVE); Color Urine UA YELLOW; Glucose Urine UA NEGATIVE (Negative); Ketones Urine UA NEGATIVE (NEGATIVE); Leukocyte Esterase Urine UA 1+ (NEGATIVE); Nitrite Urine UA NEGATIVE (Negative); Occult Blood Urine UA NEGATIVE (Negative); Protein Urine UA NEGATIVE (Negative); Urobilinogen Urine UA 0.2 E.U./dL (0.2)
[2024-12-06 14:10] LABS: Urine Volume 10mL (spun)
[2024-12-06 14:14] LABS: Bacteria Urine None Seen; RBC Urine None Seen (0-5/HPF); Squamous Epithelial Cell Urine None Seen (0-5/HPF); WBC Urine None Seen (0-5/HPF)
[2024-12-06 14:15] LABS: Culture Indicated Urine Specimen Cultured
== END ==
PROVIDERS: PCP Family Medicine; Referring Provider Urology; Visit Provider Urology
DX: R33.9 Retention of urine, unspecified (principal); N40.1 Benign prostatic hyperplasia with lower urinary tract symptoms; N13.8 Other obstructive and reflux uropathy
CPT/HCPCS: 81001; 87086

== ENCOUNTER → 2024-12-21 13:10 | Outpatient (CLI) | payer MEDICARE, OTHER, SELFPAY | PROVIDERS: PCP Family Medicine; Visit Provider Urology | DX: R33.9 Retention of urine, unspecified (principal); Z87.898 Personal history of other specified conditions | CPT/HCPCS: 87086 ==

== ENCOUNTER → 2025-01-12 17:46 | Outpatient (CLI) | payer MEDICARE, OTHER, SELFPAY | PROVIDERS: PCP Family Medicine; Visit Provider Urology | DX: N20.0 Calculus of kidney (principal); N40.1 Benign prostatic hyperplasia with lower urinary tract symptoms; N13.8 Other obstructive and reflux uropathy; R33.9 Retention of urine, unspecified; Z87.898 Personal history of other specified conditions | CPT/HCPCS: 51798; 81002; 87086; 99213 ==

== ENCOUNTER 2025-02-11 00:14 | Emergency (ER) | payer MEDICARE, OTHER, SELFPAY ==
[2025-02-11 00:21] VITALS: BP 161/76; PULSE 78; RESP 18; TEMP 36.9; O2SAT 97; BMI 30.8
--- NOTE | 2025-02-11 00:37 | DI.RAD.S_ITS ---
PROCEDURE: XR ABDOMEN MIN 2V INDICATIONS: stent placement TECHNIQUE: 2 views of the abdomen were acquired. COMPARISON: None. FINDINGS: Surgical changes and devices: Left-sided nephroureteral stent present, projecting over the appropriate position. Bowel: No pneumoperitoneum. The bowel gas pattern is normal. Large rectal stool load. Soft tissues: No masses; visualized solid organ contours appear normal in size. No suspicious abdominal calcifications. Bones: No suspicious bony abnormalities. IMPRESSION: Large rectal stool load. Left-sided nephroureteral stent projects over the appropriate position. Dictated by: Mundo Winslow M.D. on 02/11/2025 at 1:17 Approved by: Mundo Winslow M.D. on 02/11/2025 at 1:17
[2025-02-11] MEDS: KETOROLAC 30 MG/ML VIAL 15 MG IV (00:55)
[2025-02-11 01:03] VITALS: PULSE 74; O2SAT 93
[2025-02-11 01:05] LABS: Add Manual Diff / Slide Review NO; Basophils Absolute Auto 0 /uL (0-100); Basophils Percent Auto 0.4 % (0-2); Eosinophils Absolute Auto 0 /uL (0-450); Eosinophils Percent Auto 0.4 % (2-4); Hematocrit 42.4 % (41-53); Hemoglobin 14.9 g/dL (13.5-17.5); Lymphocytes Absolute Auto 1000 /uL (1100-4500); Lymphocytes Percent Auto 9.6 % (25-40); Mean Corpuscular HGB Conc 35.1 % (30-36); Mean Corpuscular Hemoglobin 31.2 PG (26-34); Monocytes Absolute Auto 900 /uL (0-900); Monocytes Percent Auto 8.5 % (3-14); Neutrophils Absolute Auto 8300 /uL (1500-7000); Neutrophils Percent Auto 81.1 % (50-75); Platelet Count 238 X10^3/uL (150-400); Red Blood Cell Count 4.77 X10^6/uL (4.5-5.9); Red Cell Distribution Width 13.7 % (11.6-14.8); White Blood Cell Count 10.2 X10^3/uL (4.5-11.0)
--- NOTE | 2025-02-11 01:06 | ED_ITS ---
HPI - Male Genitourinary General Chief complaint: Urogenital-Male Stated complaint: Left side pain after kidney stone removal Thurs Time Seen by Provider: 02/11/25 00:25 Source: patient Mode of arrival: Ambulatory History of Present Illness HPI Narrative: Patient is an 79-year-old male with history of bilateral large renal calculi, incomplete emptying of bladder urinary retention BPH with LUTS presenting to day with abdominal pain and frequent urination. Reports that 2 days ago he was at [facility] had a left ureteral stent placed and sounds like lithotripsy. He was feeling okay yesterday however today he is having pretty severe left lower quadrant pain but also feels like he is urinating frequently without emptying his bladder. This does happen to him not quite this bad. No nausea vomiting or fever. He is also urinating some blood but not on any anticoagulation or antiplatelet medication. Related Data Home Medications Medication Instructions Recorded Confirmed MULTIVITAMIN 1 tab PO QDAY ##0 12/08/16 01/12/25 ibuprofen 200 mg tablet (Advil) 200 mg PO Q4HP PRN ##0 12/08/16 01/12/25 carboxymethylcellulose sodium 0.5 drp ##0 02/22/18 01/12/25 % eye drops (Refresh Tears) docusate sodium 100 mg capsule 100 mg PO BID 08/04/24 01/12/25 (Dulcolax Stool Softener (docusate)) hydrochlorothiazide 12.5 mg tablet 12.5 mg PO DAILY 08/04/24 01/12/25 latanoprost 0.005 % eye drops drp EYE-BOTH QPM 08/04/24 01/12/25 psyllium husk 3.4 gram/5.4 gram 1 tsp PO BID 08/04/24 01/12/25 oral powder (Metamucil) timolol maleate 0.5 % eye drops drp EYE-BOTH BID 08/04/24 01/12/25 vit B complex 100 combo no.2 100 tab PO 08/04/24 01/12/25 mg tablet,extended release (B-100 Complex ER) Previous Rx's Medication Instructions Recorded tadalafil 5 mg tablet (Cialis) 5 mg PO DAILY #30 tabs 10/20/24 tamsulosin 0.4 mg capsule 0.8 mg (2 x 0.4 mg) PO DAILY #180 12/19/24 caps Allergies Allergy/AdvReac Type Severity Reaction Status Date / Time fluticasone Allergy Severe TROUBLE Verified 01/12/25 14:43 [From FLOVENT DISKUS] BREATHING Penicillins Allergy Severe SWELLING Verified 01/12/25 14:43 lisinopril [LISINOPRIL] AdvReac Severe IMPAIRED Verified 01/12/25 14:43 BREATHING mold [MOLD] AdvReac Severe IMPAIRED Verified 01/12/25 14:43 BREATHING sulfamethoxazole AdvReac Severe Dizziness Verified 01/12/25 14:43 [From Bactrim] trimethoprim [From Bactrim] AdvReac Severe Dizziness Verified 01/12/25 14:43 chlorine bleach AdvReac Severe impaired Uncoded 01/12/25 14:43 breathing Patient History Medical History Left hydrocele Scrotal sac enlargement Incomplete emptying of bladder History of urinary retention BPH with obstruction/lower urinary tract symptoms Indwelling Reed catheter present Urinary retention Hx of primary hypertension Hx of chronic arthritis Bilateral renal stones Surgical History Hx of circumcision Hx of umbilical hernia repair History of colon surgery Social History marital status: number of children: 2 Smoking Status: Former smoker alcohol intake: current caffeine: Yes Type(s) of exercise: none Smoking Status: Former smoker alcohol intake frequency: holidays/special occasions only Exam Initial Vital Signs Initial Vital Signs: Vital Signs Temperature 98.5 F 02/11/25 00:21 Pulse Rate 78 02/11/25 00:21 Respiratory Rate 18 02/11/25 00:21 Blood Pressure 161/76 H 02/11/25 00:21 Pulse Oximetry 97 02/11/25 00:21 Oxygen Delivery Method Room Air 02/11/25 00:21 GENERAL: Alert pleasant 79-year-old male HEENT: Head atraumatic,EOMI, pupils reactive, face symmetric, moist mucous membranes CARDIOVASCULAR: Regular rate and rhythm without murmurs, rubs or gallops. RESPIRATORY: Breath sounds equal bilaterally, no wheezes rales or rhonchi. ABDOMEN: Soft, tender left lower quadrant pain no guarding no rebound : No CVA tenderness EXTREMITIES: Normal range of motion, no clubbing or edema. Neurovascularly intact NEUROLOGICAL: Alert and oriented x4.Normal gait and speech. Cranial nerves II through XII grossly intact. SKIN: Warm, dry, no laceration, no petechiae, no rashes or lesions. Course Orders Ordered: ED Orders 02/11/25 00:37 XR abdomen min 2V Stat 02/11/25 00:53 CBC Auto Diff [Complete Blood Count AUTO DIFF] Stat CMP [Comprehensive Metabolic Panel] Stat 02/11/25 01:20 UA Complete [Urinalysis and Microscopic] Stat Discontinued Medications Ketorolac Tromethamine (Ketorolac 30 Mg/Ml Vial) 15 mg IV NOW ONE Stop: 02/11/25 00:38 Last Admin: 02/11/25 00:55 Dose: 15 mg Documented By: Lidocaine HCl (Lidocaine 2% (Glydo) 6 Ml Gel) 6 ml TOP NOW ONE Stop: 02/11/25 01:03 Last Admin: 02/11/25 01:21 Dose: 6 ml Documented By: Vital Signs Vital signs: Vital Signs - 8 hr 02/11/25 00:21 02/11/25 01:03 02/11/25 01:11 Temperature 98.5 F Pulse Rate 78 74 76 Respiratory Rate 18 Blood Pressure 161/76 H Pulse Oximetry 97 93 95 Oxygen Delivery Method Room Air 02/11/25 01:11 02/11/25 01:30 02/11/25 01:30 Temperature Pulse Rate 68 Respiratory Rate Blood Pressure 147/70 H 133/60 Pulse Oximetry 92 Oxygen Delivery Method MDM - Male Genitourinary Lab Data 02/11/25 00:53 02/11/25 00:53 Labs: Lab Results 02/11/25 02/11/25 Range/Units 00:53 01:20 WBC 10.2 (4.5-11.0) X10^3/uL RBC 4.77 (4.5-5.9) X10^6/uL Hgb 14.9 (13.5-17.5) g/dL Hct 42.4 (41-53) % MCV 89.0 (80-100) fL MCH 31.2 (26-34) PG MCHC 35.1 (30-36) % RDW 13.7 (11.6-14.8) % Plt Count 238 (150-400) X10^3/uL Neut % (Auto) 81.1 H (50-75) % Lymph % (Auto) 9.6 L (25-40) % Garrett % (Auto) 8.5 (3-14) % Eos % (Auto) 0.4 L (2-4) % Baso % (Auto) 0.4 (0-2) % Neut # (Auto) 8300 H (6258-4116) /uL Lymph # (Auto) 1000 L (7579-6879) /uL Garrett # (Auto) 900 (0-900) /uL Eos # (Auto) 0 (0-450) /uL Baso # (Auto) 0 (0-100) /uL Sodium 129 L (137-145) mmol/L Potassium 4.1 (3.4-5.1) mmol/L Chloride 99 (98-107) mmol/L Carbon Dioxide 22 (22-32) mmol/L BUN 18 (9-20) mg/dL Creatinine 1.04 (0.66-1.25) mg/dL Estimated GFR > 60 (>60) mL/min BUN/Creatinine Ratio 17.3 (6-22) Glucose 110 (80-110) mg/dL Calcium 10.2 (8.4-10.2) mg/dL Total Bilirubin 1.6 H (0.2-1.3) mg/dL AST 30 (17-59) IU/L ALT 22 (<50) IU/L Alkaline Phosphatase 54 (38-126) U/L Total Protein 6.3 (6.3-8.2) g/dL Albumin 3.8 (3.5-5.0) g/dL Globulin 2.5 (1.7-4.1) g/dL Albumin/Globulin Ratio 1.5 (1.0-2.8) Urine Color Red Urine Appearance Cloudy Urine pH 6.0 (4.5-8.0) Ur Specific [place] 1.020 (1.000-1.035) Urine Protein 2+ H (Negative) Urine Glucose (UA) Negative (Negative) g/dL Urine Ketones 2+ H (NEGATIVE) Urine Occult Blood 3+ H (Negative) Urine Nitrate Negative (Negative) Urine Bilirubin Negative (NEGATIVE) Urine Urobilinogen 2.0 H (0.2) E.U./dL Ur Leukocyte Esterase Trace H (NEGATIVE) Urine RBC >100/hpf H (0-5/HPF) Urine WBC 0-1/hpf (0-5/HPF) Ur Squamous Epith Cells 0-1 /hpf (0-5/HPF) Urine Bacteria Occasional (0-1) (None) Ur Culture Indicated? Cult not indicated Vol Urine Centrifuged 10ml (spun) Imaging Data Abdominal x-ray: Radiologist's Impression: PROCEDURE: XR ABDOMEN MIN 2V INDICATIONS: stent placement TECHNIQUE: 2 views of the abdomen were acquired. COMPARISON: None. FINDINGS: Surgical changes and devices: Left-sided nephroureteral stent present, projecting over the appropriate position. Bowel: No pneumoperitoneum. The bowel gas pattern is normal. Large rectal stool load. Soft tissues: No masses; visualized solid organ contours appear normal in size. No suspicious abdominal calcifications. Bones: No suspicious bony abnormalities. IMPRESSION: Large rectal stool load. Left-sided nephroureteral stent projects over the appropriate position. Dictated by: Mundo Winslow M.D. on 02/11/2025 at 1:17 MDM Narrative Medical decision making narrative: Patient 79-year-old male with recent left ureteral stent and lithotripsy presenting today with left lower quadrant pain along with inability to empty bladder completely. Initial bladder scan did show 237. It did do a bedside ultrasound bladder did look quite large but it was not palpable. Discussion with patient about if he wants catheter not at this time based on his history he would very much like a catheter. Catheter was placed he was got serosanguineous urine no significant blood clot in about 400 cc out. Overall his symptoms completely resolved. Patient was reexamined left lower quadrant is significantly less tender than it was. X-ray reviewed shows stent in place with large fecal load Blood work reviewed No significant leukocytosis or anemia Mild hyponatremia with a sodium 129 previously 132 Bilirubin is 1.6 normal liver enzymes Patient received Toradol Patient feeling much better after Toradol and Reed catheter. Stent is in place. At this time no need for a CT scan. Urinalysis shows blood but no evidence of infection will hold off on antibiotics. Patient's follow closely with Dr. Pearson and [facility]. Feels comfortable going home with Reed Discharge Plan Departure Patient Disposition: Home Clinical Impression: Urinary retention, Constipation Instructions: How to Care for Your Reed Catheter -- Male, DI for Constipation Activity Restrictions/Additional Instructions: *You have been diagnosed with urinary retention *What to do: At this time keep Reed catheter in until you see Dr. Pearson your urologist. I do also recommend taking MiraLax or stool softener to help with bowel movements *Continue to take medications as directed *Follow up with your primary care provider in 2-3 days or call [phone] *Return to ER if you should have increasing pain Reed catheter not emptying nausea vomiting or any new, worsening or concerning symptoms Prescriptions: No Action MULTIVITAMIN 1 tab PO QDAY Qty: 0 ibuprofen [Advil] 200 MG tablet 200 mg PO Q4HP PRNQty: 0 carboxymethylcellulose sodium [Refresh Tears] 15 ML drops Qty: 0 tamsulosin 0.4 mg capsule 0.8 mg PO DAILY Qty: 180 3RF timolol maleate 0.5 % drops EYE-BOTH BID latanoprost 0.005 % drops EYE-BOTH QPM docusate sodium [Dulcolax Stool Softener (dss)] 100 mg capsule 100 mg PO BID Metamucil 3.4 gram/5.4 gram powder 1 tsp PO BID Rx Instructions: mix into at least 4 oz water or juice before administering hydrochlorothiazide 12.5 mg tablet 12.5 mg PO DAILY B-100 Complex 100 mg tablet extended release PO tadalafil [Cialis] 5 mg tablet 5 mg PO DAILY Qty: 30 0RF Referrals: Tom Owen DO [Primary Care Provider] - Stand Alone Forms: Patient Portal/API/Survey
[2025-02-11 01:11] VITALS: BP 147/70; PULSE 76; O2SAT 95
[2025-02-11 01:12] LABS: Alanine Aminotransferase 22 IU/L (<50); Albumin 3.8 g/dL (3.5-5.0); Albumin Globulin Ratio 1.5 (1.0-2.8); Alkaline Phosphatase 54 U/L (38-126); Aspartate Aminotransferase 30 IU/L (17-59); BUN Creatinine Ratio 17.3 (6-22); Bilirubin Total 1.6 mg/dL (0.2-1.3); Blood Urea Nitrogen 18 mg/dL (9-20); Calcium 10.2 mg/dL (8.4-10.2); Carbon Dioxide 22 mmol/L (22-32); Chloride 99 mmol/L (98-107); Estimated Glomerular Filt Rate > 60 mL/min (>60); Globulin 2.5 g/dL (1.7-4.1); Glucose 110 mg/dL (80-110); HEMOLYSIS < 15 (0-50); Potassium 4.1 mmol/L (3.4-5.1); Sodium 129 mmol/L (137-145); Total Protein 6.3 g/dL (6.3-8.2)
[2025-02-11] MEDS: LIDOCAINE 2% (GLYDO) 6 ML GEL TOP (01:21)
[2025-02-11 01:30] VITALS: BP 133/60; PULSE 68; O2SAT 92
[2025-02-11 01:35] LABS: Appearance Urine UA CLOUDY; Bilirubin Urine UA NEGATIVE (NEGATIVE); Color Urine UA RED; Glucose Urine UA NEGATIVE (Negative); Ketones Urine UA 2+ (NEGATIVE); Leukocyte Esterase Urine UA TRACE (NEGATIVE); Nitrite Urine UA NEGATIVE (Negative); Occult Blood Urine UA 3+ (Negative); Protein Urine UA 2+ (Negative)
[2025-02-11 01:36] LABS: RBC Urine >100/HPF (0-5/HPF); Urine Volume 10mL (spun); WBC Urine 0-1/HPF (0-5/HPF)
[2025-02-11 01:37] LABS: Bacteria Urine Occasional (0-1); Culture Indicated Urine Cult Not Indicated; Squamous Epithelial Cell Urine 0-1 /HPF (0-5/HPF)
== END 2025-02-11 02:13 | disposition home or self-care (01) ==
PROVIDERS: Emergency Provider Emergency Medicine; PCP Family Medicine
DX: R33.9 Retention of urine, unspecified (principal); K59.00 Constipation, unspecified; Z96.0 Presence of urogenital implants; Z87.442 Personal history of urinary calculi
CPT/HCPCS: 36415; 51798; 74019; 80053; 81001; 85025; 96374; 99284; J1885

== ENCOUNTER → 2025-02-28 13:36 | Outpatient (CLI) | payer MEDICARE, OTHER, SELFPAY | PROVIDERS: PCP Family Medicine; Visit Provider Urology | DX: N40.1 Benign prostatic hyperplasia with lower urinary tract symptoms (principal); N13.8 Other obstructive and reflux uropathy | CPT/HCPCS: 52310; 81002; 87077; 87086; 87186 ==

== ENCOUNTER → 2025-03-30 13:51 | Outpatient (CLI) | payer MEDICARE, OTHER, SELFPAY | LOC: LAB 13:52 | PROVIDERS: PCP Family Medicine; Visit Provider Urology | DX: R33.9 Retention of urine, unspecified (principal); N40.1 Benign prostatic hyperplasia with lower urinary tract symptoms; N13.8 Other obstructive and reflux uropathy; Z87.898 Personal history of other specified conditions | CPT/HCPCS: 87077; 87086; 87147 ==

== ENCOUNTER 2025-04-10 09:47 | Day surgery (SDC) | payer MEDICARE, OTHER, SELFPAY ==
[2025-04-04 12:05] VITALS: BMI 30.4
[2025-04-10] VITALS (19 sets, daily range): BP systolic 118–155; BP diastolic 60–77; PULSE 51–68; RESP 10–18; TEMP 36.1–36.5; O2SAT 96–100; BMI 30.2
--- NOTE | 2025-04-10 | PATH_ITS ---
[facility] Accession Number: [id number] No. of containers..01 Tissue . 01 Material submitted: . prostate - PROSTATE CHIPS . 01 Diagnosis: PROSATE, TURP: Benign prostatic parenchyma and smooth muscle bundles. No evidence of malignancy. MRV 04/13/2025 1439 Local . 01 Electronically signed: . Dorian Bustamante MD, PhD, Pathologist NPI- [id number] . 01 Gross description: . Received in formalin with two identifiers and prostate chips, are multiple goldsmith soft tissue fragments admixed with a small amount of hemorrhagic material weighing 1 gram and aggregating to 2.2 x 1.9 x 0.7 cm. Submitted entirely in A1. ([id number]) /MRV 04/11/2025 1917 Local . 01 Pathologist provided ICD-10: N40.1 . 01 CPT . 525351 Specimen Comment: A courtesy copy of this report has been sent to [phone] Performed at: [address] [id number] MD Wellington Acharya MD Phone: [phone]
[2025-04-10] MEDS: LACTATED RINGERS 1,000 ML 21 ML IV (10:49)
--- NOTE | 2025-04-10 11:14 | PM.PREOP ---
Pre-operative Note COVID-19 COVID-19 status: Not tested Interval Note History & Physical reviewed/Exam performed by Physician: Yes Changes to H&P: No
--- NOTE | 2025-04-10 11:56 | SUR.OPER ---
Lithotomy on padded OR bed, head on pillow, arms secured on padded arm boards at <90 degrees abduction. Legs secured in padded yellow fins stirrups.
[2025-04-10] MEDS: CIPROFLOXACIN 400 MG/200 ML PIGGYBACK 200 MG IV (12:03)
--- NOTE | 2025-04-10 13:34 | P.OP_ITS ---
Operative Date/Time/Diagnoses Date of procedure: 04/10/25 Time of procedure: 13:34 Pre-op diagnosis: BPH with LUTS/urinary retention Post-op diagnosis: same Procedure & Clinicians Procedure: 1. Aquablation 2. Transrectal ultrasound of prostate 3. Transurethral resection of prostate with fulguration 4. Placement of Reed catheter Same procedure as scheduled: Yes Indications: This 79-year-old male presented with multiple urinary complaints including urinary retention. Patient was started on medication and this appeared to resolve and he did well for a time however his urinary retention has returned despite maximum maximal medical therapy and he presents at this time for Aquablation to eliminate his retention and urinary symptoms.. Patient was unable to do a uroflow due to his urinary retention. His prostate was measured at 50 g by ultrasound in its cystoscopy was found to have an obstructing prostate with no bulging into the bladder. Surgeon: Edd Pearson Click Yes if Unassisted: Yes Anesthesia Type: General Operative Notes Findings: Urethral meatus shows stigmata of Reed catheter being in place the urethra is normal save the changes of Reed catheter. The sphincter as well coapted the prostate shows marked obstructive character no bulging into the bladder, the ureteral orifices in normal position with clear efflux there severe trabeculation cellules in the bladder but no other mucosal lesions. At the end of the procedure the prostatic fossa was widely patent with the patient had a vigorous stream with his bladder full and the scope removed. A [address] hematuria catheter was left in place with 45 cc in the balloon. It was draining pink urine at the end of the case. The ureteral orifices were in normal position with clear efflux at the end of the case. Closure Type: not applicable Specimen(s): other (Prostate chips) Prosthetic devices, grafts, tissues, transplants, or devices: [address] hematuria catheter 45 cc in the balloon. Estimated Blood Loss (mL): 25 Blood products transfused: none Procedure in detail: Procedure in detail: After informed consent was obtained, the patient was identified brought the operating room placed in a supine position on the table where anesthesia was induced and maintained. Ensuring an adequate level of anesthesia the patient was transitioned to the lithotomy position where he was prepped and a sterile fashion. After prepping and ensuring an adequate level of anesthesia, time-out, administration of antibiotics the ultrasound probe was inserted in the following fashion. After insertion of 60 cc of ultrasound gel the ultrasound probe was inserted into the rectum under live ultrasound guidance. The ultrasound probe he had been attached to the truss stepper which he had been attached to the truss articulating arm which he had been attached to the bed. With the probe in place confirmation made that it was aligned and centered in both the transverse and longitudinal views. The bladder neck, verumontanum, central prostate, transitional and peripheral zones were identified. With the ultrasound probe aligned and centered the patient was draped in a sterile fashion. At this point the 24 Argentine aqua beam handpiece was inserted through the urethral prostate and into the bladder under direct vision where cystoscopy was performed. As it was inserted the external sphincter, verumontanum bladder neck and ureteral orifices were noted both visually and by live ultrasound. The Aquablation handpiece was then secured to the handpiece articulating arm which he had been secured to the bed. At this point the Aquablation handpiece and ultrasound probe were confirmed to be parallel and colinear. Confirmation was made that the aqua beam nozzle was centered over the bladder neck and bladder and anterior to this. The cystoscope was then retracted and the external sphincter and verumontanum visualized. The tip of the scope was left just proximal to the external sphincter. Again conf irmation was made of the alignment for the ultrasound probe and the Aquablation handpiece. Compression was then applied with a truss probe. Horizontal alignment of the Aquablation beam water jet nozzle was performed it was confirmed to be at the 3 and 9 o'clock position. The Aquablation treatment zones were then programmed into the planning software using real-time ultrasound to visualize the contours of the prostate. In the transverse view the depth and radial angles of resection were defined and entered. In the longitudinal or sagittal view the aqua beam nozzle was identified in his position registered with the software. The tip of the scope defining the length of resection was also entered window of the software. Again in the sagittal longitudinal view the treatment contours were defined including the start of resection bladder neck mid prostate and then tip of scope. These were further refined entered into the program. With this in place and ensuring that the patient would not move with anesthesia the Aquablation treatment was started and follow the resection contour. This was confirmed under real-time ultrasound guidance. Adjustments were made as needed it was determined that there needed to be a 2nd pass adjustments were made to the contour and the 2nd pass was performed again ensuring that the patient would not move total Aquablation resection time was about 6 minutes. With the Aquablation complete the scope was advanced to the tip of the hand piece and the scope was looked out under direct vision. With the hand piece removed the resectoscope was passed through the urethra prostate under direct and ultrasound vision. The Ellik evacuator was then used to evacuate clot and other debris from the bladder. The working element was then inserted the position of the ureteral orifices noted and the bladder neck was resected from the 2 to 10 o'clock position points of bleeding being controlled with the electrocautery. Anteriorly there were some bleeding noted this was controlled with the bipolar electrocautery. There was a small amount of tissue at the apex that was redundant that was resected. With this completed the Ellik evacuator was once again used to clear the prostate chips and clot from the bladder. The scope was once again inserted in the last few points of bleeding were controlled leaving the urine or efflux with a latest of pink colored. With this completed the ureteral orifices were once again visualized they were unaffected by the procedure and all chips were out of the bladder the bladder was left full the scope was removed and a vigorous stream was noted. The 22 Argentine catheter was then passed with the aid of a cath guide and ultrasound end of the bladder the balloon was filled with 45 cc of sterile water it was placed to gravity drainage and continuous bladder irrigation. It was hand irrigated and again remain clear at this point the patient was awakened having tolerated the procedure well transferred to the postanesthesia care unit for recovery there were no complications Complications: none Post-operative Disposition: PACU Plan for aftercare: Patient will recover in the postanesthesia care unit in it determination will be made regarding discharge. At a minimum the patient will follow up in my office in 7 days for voiding trial and catheter removal Aquablation follow-up
[2025-04-10] MEDS: PHENAZOPYRIDINE 100 MG TABLET 200 MG PO (14:08)
[2025-04-10] MEDS: ACETAMINOPHEN 325 MG TABLET 650 MG PO (14:08)
--- NOTE | 2025-04-10 14:38 | SUR.PHASEII ---
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 See new order for bacitracin ointment as pt requested Can I have something for the burning?
[2025-04-10] MEDS: BACITRACIN OINT 0.9 GM PCKT 1 APPLIC TOP (14:43)
[2025-04-10] MEDS: OXYBUTYNIN 5 MG TABLET PO (15:27)
[2025-04-10] MEDS: KETOROLAC 30 MG/ML VIAL IV (15:28)
--- NOTE | 2025-04-10 18:54 | P.OP.PRE_ITS ---
Pre-operative Note COVID-19 COVID-19 status: Not tested Interval Note History & Physical reviewed/Exam performed by Physician: Yes Changes to H&P: Yes H&P completed within 30 days and has changed as indicated here:: The patient had Aquablation earlier today and when he left the operating room things look to be in good shape however as the afternoon progressed he began to have a amount of blood out around the catheter which is more than I was comfortable with. The CBI appeared to be and ?okay color ?. At the time of operation as we left urine was actually fairly clear unsure where the source of this bleeding is coming fr om but we need we need to know so he will be taken back for cystoscopy fulguration and other treatments to evacuate clot and to control whatever the source of bleeding maybe. The procedure, risks, alternatives have been discussed with the patient he understands and wishes to proceed.
[2025-04-10] MEDS: CEFAZOLIN 2 GM/100 ML PREMIX 100 ML IV (19:05)
--- NOTE | 2025-04-10 19:19 | SUR.OPER ---
Lithotomy on padded OR bed, head on pillow, arms secured on padded arm boards at <90 degrees abduction. Legs secured in padded yellow fins stirrups.
--- NOTE | 2025-04-10 20:06 | SUR.OPER ---
Previous surgically placed joseph cath discontinued after patient positioned for procedure and before prepped.
--- NOTE | 2025-04-10 21:03 | P.OP_ITS ---
Operative Date/Time/Diagnoses Date of procedure: 04/10/25 Time of procedure: 21:03 Pre-op diagnosis: Gross hematuria with clots after Aquablation Post-op diagnosis: same Procedure & Clinicians Procedure: Cystoscopy with the evacuation of clot and fulguration of bleeding sites Reed catheter removal and Reed catheter replacement Same procedure as scheduled: Yes Indications: This 79-year-old male had Aquablation earlier today as he left the operating room his urine was light pink over the course of the day as he was observed his continuous bladder irrigation became redder and he developed clots and he had a remarkable amount of blood and clot around the catheter through the penis. This was cleared and bladder irrigated when it returned it was more than I was comfortable with and therefore the patient was brought back to the operating room to investigate a source of bleeding I was suspicious there may have been some small arteries which were in spasm at the time of the procedure which relaxed and began to bleed and this would prove to be true. Surgeon: Edd Pearson Click Yes if Unassisted: Yes Anesthesia Type: General Operative Notes Findings: Urethral meatus and urethra were normal. The sphincter as well coapted. The prostatic fossa was resected and had some dense adherent clot. Within the bladder there was also clot. The ureteral orifices were normal position with clear efflux in the bladder exhibits severe trabeculation and cellules. As the adherent clot was removed there were 2 sites of of more active bleeding 1 anteriorly at the bladder neck at approximately the 11 o'clock position. This was under some adherent clot and was cauterized. The 2nd site again was on the right back toward the veru and it was unroofed uncovered the clot was removed and it was cauterized. With this the urine significantly cleared there were a few other small oozing veins which were cauterized. At the end the procedure the urine remained clear and these were the culprits. Patient was observed in the operating room his urine remained clear. A 24 [place] [address] hematuria catheter was left in place with 45 cc in the balloon. Closure Type: not applicable Specimen(s): none sent Prosthetic devices, grafts, tissues, transplants, or devices: Twenty-four [place] three-way 30 cc hematuria catheter with 45 cc in the balloon. Estimated Blood Loss (mL): 100 Blood products transfused: none Procedure in detail: Procedure in detail: After informed consent was obtained patient was identified brought to the operating room placed in a supine position on the table where anesthesia was induced to maintained. Patient was then transitioned to the lithotomy position where he was prepped and draped in a sterile fashion. After prepping and draping, ensuring an adequate level of anesthesia, time-out and administration of antibiotics the patient had a 22 [place] cystoscope passed through the urethra prostate and into the bladder. An Ellik evacuator was used to evacuate some clot. At this point it was decided that the resectoscope would be a more viable instrument the cystoscope was backed out and the resectoscope passed through the urethral prostate and into the bladder under direct vision. There using the Ellik evacuator clot was evacuated from the bladder. The thick resecting loop was used then to dislodge the adherent clot in the prostatic fossa. And as noted anteriorly at approximately the 11 o'clock position there was an active bleeder which was cauterized. The urine remained rather than I would like and so further clot was removed. His switched to the thin loop as this seemed to be more efficacious. Several small venous oozers were noted these were cauterized and eventually at the 8 o'clock position in at that is almost the level of the verumontanum another active arterial bleeder was noted. These were not present at the time of his earlier surgery and the only summation I can come to his that they were in spasm and then relaxed. They were cauteri zed and his urine remained clear. Clot and was evacuated with the Ellik evacuator. Again some of the clot was dense and did require resection what at the end of the procedure hematuria and hemostasis appeared achieved and with this accomplished with the bladder full scope was removed vigorous stream was noted and then with the aid of a cath guide the 24 [place] catheter was passed easily into the bladder the balloon filled with 45 cc of sterile water it was placed to gravity drainage and continuous bladder irrigation at this point the patient was awakened having tolerated the procedure well to be transferred to the postanesthesia care unit for recovery and then to be seen are cared for in acute care with continuous bladder irrigation weaning this off over the night. Patient tolerated the procedure well as noted and there were no complications Complications: none Post-operative Condition: stable Disposition: PACU Plan for aftercare: Patient will be transferred to acute care for continuous bladder irrigation.
[2025-04-10] MEDS: DOCUSATE 100 MG CAPSULE PO (22:28)
[2025-04-11] VITALS: BP 142/64; PULSE 79; RESP 18; TEMP 36.6; O2SAT 97
[2025-04-11 04:00] VITALS: BP 113/52; PULSE 64; RESP 17; TEMP 36.1; O2SAT 95
[2025-04-11] MEDS: CALCIUM CARBONATE 500 MG TAB PO (05:44)
[2025-04-11 08:00] VITALS: BP 131/59; PULSE 86; RESP 16; TEMP 37; O2SAT 96
[2025-04-11] MEDS: DOCUSATE 100 MG CAPSULE PO (08:41)
[2025-04-11] MEDS: hydroCHLOROthiazide 25 MG TABLET 12.5 MG PO (08:42)
[2025-04-11] MEDS: TAMSULOSIN 0.4 MG CAPSULE 0.8 MG PO (08:42)
[2025-04-11] MEDS: CIPROFLOXACIN 250 MG TABLET 500 MG PO (08:42)
[2025-04-11] MEDS: HYDROGEN PEROXIDE 473 ML SOLUTION 60 ML TOP (11:30)
--- NOTE | 2025-04-11 13:11 | P.PN_ITS ---
Subjective Subjective Date Patient Seen: 04/11/25 Time Patient Seen: 13:11 Interval history: Patient is seen today in follow-up of his Aquablation performed yesterday the subsequent development of bleeding which turned out to be from couple of small arteries that he had been in spasm and relax. He was taken to the operating room and these were cauterized. He had had continuous bladder irrigation overnight in his urine has cleared. The patient reports that he is feeling well tolerating a regular diet his pass some minimal gas and has no pain. At this point he would appear to be ready for discharge as the CBI has been weaned off in his urine has remained relatively clear. He did pass a small clot which with what was found makes perfect sense. The has a observed and we will be taught to irrigate should they need to at home to clear any small clots that come up. Verbal instructions have been given to the patient in his he will follow-up next Wednesday in my office. Exam Vital Signs (past 8 hours): - 04/11/25 08:00 Temperature 98.6 F Pulse Rate 86 Respiratory Rate 16 Blood Pressure 131/59 L Pulse Oximetry 96 Oxygen Flow Rate 0 Oxygen Delivery Method Room Air Oxygen Flow Rate 0 Narrative Exam Narrative: Patient is awake, alert, oriented in no distress and no pain. Lungs: Clear full and equal Cardiovascular exam: Regular rate and rhythm without murmur Abdominal exam: Soft, nontender Genitourinary exam Reed catheter in place 3 way clear to at most blush colored urine. Extremities nontender. [facility] Medical History (Updated 04/11/25 @ 13:14 by Edd Pearson MD) Gross hematuria Left hydrocele Scrotal sac enlargement Incomplete emptying of bladder History of urinary retention BPH with obstruction/lower urinary tract symptoms Indwelling Reed catheter present Urinary retention Hx of primary hypertension Hx of chronic arthritis Bilateral renal stones Surgical History (Updated 04/04/25 @ 12:16 by Anneliese Summers RN) Hx of cystoscopy (02/28/25) Hx of lithotripsy (02/09/25) Hx of circumcision Hx of umbilical hernia repair History of colon surgery Social History marital status: number of children: 2 household members: spouse Smoking Status: Former smoker alcohol intake: current caffeine: Yes Type(s) of exercise: none Assessment & Plan Assessment and plan (1) BPH with obstruction/lower urinary tract symptoms: Status: Acute (2) Urinary retention: Status: Acute (3) Indwelling Reed catheter present: Status: Acute (4) Gross hematuria: Status: Acute Plan Assessment and plan: Postoperative gross hematuria has resolved patient is in a position where he is ready for discharge and we will be discharged to home. Please see discharge instructions. Time-Based Coding :: 30[TOTAL MINUTES] spent with patient and on the chart (including review of chart, obtaining history, exam, reviewing outside data, placing orders, documenting exam and treatment plan, and counseling patient) on [DATE]. PROFEE Architectural Examiner Document charge(s): No
--- NOTE | 2025-04-11 13:15 | PM.DS.IH.1 ---
History of Present Illness History of Present Illness Date Patient Seen: 04/11/25 Time Patient Seen: 13:16 Date of Onset of Symptoms: 04/10/25 Chief complaint: Postoperative gross hematuria Narrative: This 79-year-old male who yesterday underwent Aquablation and initially did well but in recovery was noted to have increasing amounts of gross hematuria and actually clot around his catheter. As this progressed it necessitated dated taking the patient back to this operating room where he was found to have 2 arterial bleeders that were cauterized. He was observed overnight with continuous bladder irrigation and things have stayed clear and he is now in a position where he is ready for discharge. He reports no pain has clear urine tolerating a regular diet ambulating without difficulty and again is ready for discharge. Discharge Providers Provider Discharge Date: 04/11/25 Primary care physician: Tmo Owen, DO Discharge provider: Edd Pearson MD Exam Vital Signs (past 8 hours): - 04/11/25 08:00 Temperature 98.6 F Pulse Rate 86 Respiratory Rate 16 Blood Pressure 131/59 L Pulse Oximetry 96 Oxygen Flow Rate 0 Oxygen Delivery Method Room Air Oxygen Flow Rate 0 Narrative Exam Narrative: Please see progress note from today [facility] Medical History (Updated 04/11/25 @ 13:14 by Edd Pearson MD) Gross hematuria Left hydrocele Scrotal sac enlargement Incomplete emptying of bladder History of urinary retention BPH with obstruction/lower urinary tract symptoms Indwelling Joseph catheter present Urinary retention Hx of primary hypertension Hx of chronic arthritis Bilateral renal stones Surgical History (Updated 04/04/25 @ 12:16 by Anneliese Summers RN) Hx of cystoscopy (02/28/25) Hx of lithotripsy (02/09/25) Hx of circumcision Hx of umbilical hernia repair History of colon surgery Social History marital status: number of children: 2 household members: spouse Smoking Status: Former smoker alcohol intake: current caffeine: Yes Type(s) of exercise: none Discharge Assessment & Plan Assessment and Plan Assessment: Gross hematuria has cleared after the procedure patient is ready for discharge and will be discharged to home with his catheter in place to follow up my office next Wednesday. Plan of Treatment: Again patient to be discharged to home to quiet activity increased fluid intake. His has been taught to irrigate his catheter should he have some small clots. He will follow up my office next Wednesday for catheter removal and voiding trial. Discharge Plan Discharge Plan Patient Disposition: Home Provider Discharge Comment: Patient is discharged to home. At home he could expect some blood in his catheter and tubing especially with activity. There maybe some small clots. Patient should increase his fluid intake to ?flush things through?. Patient will be given Pyridium and oxybutynin that he may take for bladder spasm and or bladder irritation. Patient should be warned that the Pyridium we will change the color of his urine and stained whatever it gets on if he takes it. Patient may shower with the catheter in place. If the patient develops crusting around the end of the catheter she clean this with a 50 50 mixture of hydrogen peroxide and water and then apply bacitracin ointment only. Patient was not to use Neosporin patient may resume his regular diet and bowel routine. Patient could continue his antibiotics until they are gone. Nursing Discharge Comment: You received Tylenol 650mg at 2pm. You may take another dose of Tylenol after 8pm as needed for pain. You received Pyridium at 2pm. You received Oxybutynin at 3:30pm. Avoid taking Ibuprofen/motrin/advil/aleve until after your joseph catheter is removed. Discharge orders & Medications Discharge Orders: Discharge (Order); Ordered 04/11/25 Ordered By: Edd Pearson Prescriptions: New oxybutynin chloride 5 mg tablet 5 mg PO BID-TID PRN (Reason: bladder spasms) Qty: 20 0RF phenazopyridine [Pyridium] 200 mg tablet 200 mg PO TID PRN (Reason: pain) Qty: 20 0RF Continued MULTIVITAMIN 1 tab PO QDAY Qty: 0 ibuprofen [Advil] 200 MG tablet 200 mg PO Q4HP PRN (Reason: Pain (Scale Score 4-6)) Qty: 0 carboxymethylcellulose sodium [Refresh Tears] 15 ML drops 1 drp EYE-BOTH PRN PRN (Reason: Dry Eyes) Qty: 0 ciprofloxacin HCl 500 mg tablet 500 mg PO BID Qty: 30 0RF tamsulosin 0.4 mg capsule 0.8 mg PO DAILY tadalafil 5 mg tablet 5 mg PO DAILY timolol maleate 0.5 % drops 1 drp EYE-BOTH BID latanoprost 0.005 % drops 1 drp EYE-BOTH QPM docusate sodium [Dulcolax Stool Softener (dss)] 100 mg capsule 100 mg PO BID hydrochlorothiazide 12.5 mg tablet 12.5 mg PO DAILY B-100 Complex 100 mg tablet extended release 1 tab PO DAILY Allergy Relief (loratadine) 10 mg capsule 10 mg PO DAILY Follow up/Referrals: Tom Owen DO [Primary Care Provider] - Edd Pearson MD [Physician] - Diet/Activity/Treatments Diet: Diet as Tolerated Catheter: 3-way Joseph Visit Report/Discharge Packet Instructions: How to Care for Your Joseph Catheter -- Male Stand Alone Forms: Patient Portal/API Discharge Data Primary Care Provider: Tom Owen Attending Provider: Edd Pearson PROFEE Charge Codes Discharge inpatient/observation: [id number] (I am not sure Sure how to answer this question)
--- NOTE | 2025-04-11 13:30 | CM.DANOTE ---
Initial DCP Assessment Visit Note Reviewed EMR and team rounds for status updates. Met with pt at bedside to introduce self and role, pt was found to be alert/oriented, able to discuss his plan for cg assistance once he gets home, as well as his plan for f/u with Dr. Pearson/OP Urology. Pt lives independently with his in their own home in [place]. Pt has been medically cleared for home d/c, and his will be transporting him home later this afternoon. Payor: Medicare Attending: Dr. Pearson Pt is a 79 year-old M post-op day 1 from an Aquablation procedure. He has a hx of urinary retention and benign prostatic hyperplasia. Pt did require to be brought back to surgery from the PACU after having some excessive bleeding for a TURP, after which he has recovered well postoperatively throughout the day. Pt shared that this is the second of three surgeries that he is needing for his urinary related issues, and after he heals from this surgery, he will schedule his third and hopefully, final surgery. Pt declines any CM d/c assistance or resources during this admission. No further CM needs indicated at this time. Discharge Planning/Care Management Advanced directive, confirm from FAMILY Start: 04/10/25 21:33 Freq: Q24H Status: Active Protocol: Document 04/10/25 21:33 (Rec: 04/11/25 02:05 [id number]) Advance Directive, confirm on record Time 21:30 Person contacted pt Copy received No CM Discharge Assessment Start: 04/10/25 17:30 Freq: Status: Active Protocol: Document 04/11/25 13:29 DPL (Rec: 04/11/25 13:30 DPL [id number]) Discharge Planning Assessment Assigned Consumer Affairs Director LONODN Velez Advance Directives? No Advance Directives on File No History Provided By Patient,Medical Record Has Patient been admitted in last 30 No days? Prior Living Arrangements House Household Members spouse Type of transporation used prior to Drives own vehicle admit Independent with ADL's Yes Is patient alert and oriented? Yes Comment N/A Caregiver for Another No DME Already Rented / Owned Bath Bench,Elevated Toilet Seat Comment OP Urology f/u. Barriers to Discharge No Discharge Plan Home Referrals Initiated None needed Whiteboard Updated in Patient Room with Yes name and ext. # of Consumer Affairs Director Review Status In Process Please Provide Date Initial DC 04/11/25 Assessment Was Performed Pre-Anesthesia Assessment Start: 04/04/25 12:05 Freq: Status: Active Protocol: Document 04/04/25 12:05 LB (Rec: 04/04/25 12:18 LB [id number]) Pre-Anesthesia Assessment PAC Comment 04/04/25 Chart review. Patient Information Reviewed Via Chart Review Comment 02/11/25 at . . Na+ 129. Primary Care Provider Tom Owen Seen Specialist in Last 12 Months Yes Specialist Seen Emergency,Urologist Primary Language Vietnamese Preferred Language Vietnamese Director Of Content Marketing Required No Height 187.96 cm Weight 107.501 kg Body Mass Index (BMI) 30.4 Anesthesia Review Requested No Front Desk Assistant No alcohol intake current alcohol intake frequency holidays/special occasions only Smoking Status Former smoker Substance Use Type [#R] does not use Patient is completely paralyzed or No completely immobile Is patient on oxygen? No Hx Sleep Apnea No Currently Taking a Beta Sara No Anti-Coagulant Therapy No Cardiac Testing No Hx Pacemaker/ICD No Urinary Catheter Present Yes Diabetes No Presence of External or Internal Medical Yes: Reed catheter. Devices Marital Status Lives With spouse Patient Discharge Plan Description Return Home Emergency Contact Name Lea Quiles - Emergency Contact Advance Directives on File No
== END 2025-04-11 14:45 | disposition home or self-care (01) ==
LOC: OR 17:00 → AC 17:09
PROVIDERS: PCP Family Medicine; Referring Provider Urology; Visit Provider Urology
PROC: 0VT08ZZ Resection of Prostate, Via Natural or Artificial Opening Endoscopic (ICD-10-PCS; CPT 0421T; principal; 2025-04-10 11:45)
PROC: 0TJB8ZZ Inspection of Bladder, Via Natural or Artificial Opening Endoscopic (ICD-10-PCS; CPT 52000; principal; 2025-04-10 17:30)
DX: N40.1 Benign prostatic hyperplasia with lower urinary tract symptoms (principal); R33.9 Retention of urine, unspecified; N13.8 Other obstructive and reflux uropathy; N43.3 Hydrocele, unspecified; R31.0 Gross hematuria
CPT/HCPCS: 0421T; 52001; 82962; C2596; J0690; J0744; J1100; J1885; J2405; J2704; J3010; J3490

== ENCOUNTER → 2025-04-17 15:49 | Outpatient (CLI) | payer MEDICARE, OTHER, SELFPAY ==
[2025-04-10 21:26] VITALS: BMI 30.2
== END ==
PROVIDERS: PCP Family Medicine; Visit Provider Urology
DX: R31.0 Gross hematuria (principal); Z87.898 Personal history of other specified conditions; Z68.30 Body mass index [BMI] 30.0-30.9, adult
CPT/HCPCS: 51798; 81002; 87086

== ENCOUNTER → 2025-05-02 15:33 | Outpatient (CLI) | payer MEDICARE, OTHER, SELFPAY ==
[2025-04-10 21:26] VITALS: BMI 30.2
== END ==
PROVIDERS: PCP Family Medicine; Visit Provider Urology
DX: R31.0 Gross hematuria (principal); N40.1 Benign prostatic hyperplasia with lower urinary tract symptoms; N13.8 Other obstructive and reflux uropathy; N43.3 Hydrocele, unspecified; R35.1 Nocturia
CPT/HCPCS: 81002; 87077; 87086; 87147; 99213

== ENCOUNTER → 2025-05-30 13:27 | Outpatient (CLI) | payer MEDICARE, OTHER, SELFPAY ==
[2025-04-10 21:26] VITALS: BMI 30.2
== END ==
PROVIDERS: PCP Family Medicine; Visit Provider Urology
DX: R39.9 Unspecified symptoms and signs involving the genitourinary system (principal)
CPT/HCPCS: 87086

== ENCOUNTER 2025-06-08 09:31 | Day surgery (SDC) | payer MEDICARE, OTHER, SELFPAY ==
[2025-04-10 21:26] VITALS: BMI 30.2
[2025-06-06 09:13] VITALS: BMI 29.9
[2025-06-08] MEDS: LACTATED RINGERS 1,000 ML 42 ML IV (07:00)
[2025-06-08] MEDS: LACTATED RINGERS 1,000 ML 21 ML IV (09:56)
[2025-06-08 10:04] VITALS: BMI 29.9
[2025-06-08 10:08] VITALS: BP 147/74; PULSE 48; RESP 16; TEMP 36.7; O2SAT 98
--- NOTE | 2025-06-08 10:19 | PM.PREOP ---
Pre-operative Note COVID-19 COVID-19 status: Not tested Interval Note History & Physical reviewed/Exam performed by Physician: Yes Changes to H&P: No
[2025-06-08] MEDS: CLINDAMYCIN 900 MG/50 ML PIGGYBACK 50 MG IV (10:44)
--- NOTE | 2025-06-08 10:54 | SUR.OPER ---
Supine on padded OR bed, head on pillow, arms secured on padded arm boards at <90 degrees abduction, legs uncrossed, safety belt at upper chest, tape over blanket over lower legs.
[2025-06-08] MEDS: LIDOCAINE 1% 20 ML INJ (11:04)
[2025-06-08] MEDS: BUPIVACAINE 0.5% (PF) 10 ML VIAL INJ (11:06)
[2025-06-08] MEDS: BACITRACIN OINT 0.9 GM PCKT 1 APPLIC TOP (11:33)
[2025-06-08] MEDS: BACITRACIN 28 GM OINT 1 APPLIC TOP (11:37)
[2025-06-08 11:50] VITALS: BP 132/68; PULSE 61; RESP 13; TEMP 36.3; O2SAT 94
[2025-06-08 11:55] VITALS: BP 124/68; PULSE 59; RESP 13; O2SAT 97
--- NOTE | 2025-06-08 11:56 | P.OP_ITS ---
Operative Date/Time/Diagnoses Date of procedure: 06/08/25 Time of procedure: 11:00 Pre-op diagnosis: Left hydrocele Post-op diagnosis: same Procedure & Clinicians Procedure: Left hydrocelectomy Same procedure(s) as scheduled: Yes Indications: 79 y/o M noted to have a moderate sized left hydrocele that is causing him pain and discomfort and he would prefer to have managed as soon as possible. Discussed that his left testicle is otherwise not difficult to definitively palpate, therefore, could proceed with management via percutaneous drainage of his hydrocele in clinic. Discussed that a hydrocele itself does not negatively impact the health of the testicle or its ability to produce testosterone or sperm. Discussed risks of the procedure to include but not limited to pain, bleeding, infection, 2-3% chance of recurrence with a hydrocelectomy vs >50% with percutaneous drainage in Urology clinic, infertility, damage to left spermatic cord leading to testicular atrophy and/or loss, spermatocele formation, poor cosmesis, chronic pain. Surgeon: Dread Ibarra Click Yes if Unassisted: Yes Anesthesia Type: General Operative Notes Findings: Moderate sized left hydrocele Closure Type: primary Specimen(s): none sent Applied: none Estimated Blood Loss (mL): 5 Blood products transfused: none Procedure in detail: Patient was identified in the preoperative holding area and consent confirmed. He was then brought to the operating room and placed supine on the operating room table where general anesthesia was induced. All bony prominences were then properly padded and he was prepped and draped in the standard sterile fashion. A surgical timeout was conducted and all members of the operating team were in agreement. A 5cm transverse incision was marked on the left hemiscrotum using a marking pen. This was then incised using a 15 blade. The dissection was then carried down through the subcutaneous tissue and dartos fascia using bovie electrocautery. The hydrocele sac was then delivered onto the operative field through the incision. The testicle was noted to be at the inferior pole of the hydrocele sac. After freeing the hydrocele sac circumferentially from the surrounding dartos fascia, the hydrocele sac was entered using bovie electrocautery and the fluid was manually evacuated. Throughout the entire procedure, care was taken to avoid the left testicle and spermatic cord, which were both preserved at case end. Excess hydrocele sac was then ligated using bovie electrocautery. The edges of tunica vaginalis were then oversewn using 3-0 Vicryl in a running fashion. The scrotum was then inspected for hemostasis, which was noted to be excellent. A florence drain was then brought out the inferior most portion of his left hemiscrotum and secured to the skin using a 3- 0 Nylon stitch. The left testicle was placed back into the left hemiscrotum in correct anatomic position and without twisting of the spermatic cord. The incision was then closed in two separate layers. Dartos was reapproximated using 3-0 Vicryl in a running fashion. The skin edges were then reapproximated using 3-0 Chromic in a running horizontal mattress fashion. Bacitracin was then applied to the incision. A total of 20cc of 1:1 mixture of 1% Lidocaine plain and 0.5% Marcaine plain was used for incision and cord block anesthetic. Fluff gauze and scrotal support was then placed over the incision. Anesthesia was reversed, he was extubated in the OR and transferred to the PACU in stable condition for recovery. Complications: none Post-operative Condition: stable Disposition: PACU Plan for aftercare: Discharge home from PACU. Will return to Urology clinic on 11 June 2025 for a drain removal.
[2025-06-08 12:00] VITALS: BP 144/74; PULSE 60; RESP 17; O2SAT 96
[2025-06-08 12:05] VITALS: BP 141/73; PULSE 57; RESP 24; O2SAT 96
[2025-06-08 12:10] VITALS: BP 148/78; PULSE 57; RESP 21; O2SAT 96
[2025-06-08] MEDS: ONDANSETRON 4 MG/2 ML INJ IV (12:35)
== END 2025-06-08 13:12 | disposition home or self-care (01) ==
PROVIDERS: PCP Family Medicine; Referring Provider Urology; Visit Provider Urology
PROC: (CPT 55040; principal; 2025-06-08 10:45)
DX: N43.3 Hydrocele, unspecified (principal); N40.1 Benign prostatic hyperplasia with lower urinary tract symptoms; R35.1 Nocturia
CPT/HCPCS: 55040; J1100; J2405; J2704; J3010

== ENCOUNTER 2025-07-03 16:20 | Emergency (ER) | payer MEDICARE, OTHER, SELFPAY ==
[2025-04-10 21:26] VITALS: BMI 30.2
[2025-07-03] VITALS (15 sets, daily range): BP systolic 130–167; BP diastolic 61–80; PULSE 55–63; RESP 14–21; TEMP 36.4; O2SAT 93–98; BMI 30.2
--- NOTE | 2025-07-03 16:46 | DI.US.S_ITS ---
PROCEDURE: US PERIPH VENOUS LOW EXTREM RT INDICATIONS: swelling TECHNIQUE: Real-time imaging, as well as color and pulse Doppler interrogation, were performed of the lower extremity deep veins from the inguinal ligament to the popliteal fossa, with documentation of the visualized calf veins. COMPARISON: None. FINDINGS: The common femoral, femoral, popliteal, and the visualized calf veins are normally compressible, and free of intraluminal thrombus. Color and pulse Doppler demonstrate normal phasic intraluminal flow. There is normal augmentation response to distal compression maneuver. Superficial venous thrombosis can be seen within the greater saphenous vein distally. Significant venous reflux can be seen, measuring greater than 4 seconds. IMPRESSION: No findings of lower extremity deep venous thrombosis. Superficial venous thrombosis can be seen involving the distal greater saphenous vein. Dictated by: Dandre Gregorio M.D. on 07/03/2025 at 16:22 Approved by: Dandre Gregorio M.D. on 07/03/2025 at 16:23
[2025-07-03 21:06] LABS: Add Manual Diff / Slide Review NO; Hematocrit 47.1 % (41-53); Hemoglobin 15.8 g/dL (13.5-17.5); Lymphocytes Absolute Auto 2000 /uL (1100-4500); Mean Corpuscular HGB Conc 33.5 % (30-36); Mean Corpuscular Hemoglobin 30.2 PG (26-34); Mean Corpuscular Volume 90.1 fL (80-100); Platelet Count 241 X10^3/uL (150-400)
[2025-07-03 21:12] LABS: INR 1.1 (0.9-1.3); Prothrombin Time 12.5 SECONDS (9.4-12.5)
[2025-07-03 21:18] LABS: Alanine Aminotransferase 18 IU/L (<50); Albumin 4.2 g/dL (3.5-5.0); Albumin Globulin Ratio 1.8 (1.0-2.8); Alkaline Phosphatase 69 U/L (38-126); Blood Urea Nitrogen 16 mg/dL (9-20); Calcium 10.5 mg/dL (8.4-10.2); Carbon Dioxide 29 mmol/L (22-32); Chloride 101 mmol/L (98-107); Estimated Glomerular Filt Rate > 60 mL/min (>60); Globulin 2.3 g/dL (1.7-4.1); Glucose 107 mg/dL (70-99); HEMOLYSIS < 15 (0-50); Potassium 3.8 mmol/L (3.4-5.1); Sodium 136 mmol/L (137-145); Total Protein 6.5 g/dL (6.3-8.2)
--- NOTE | 2025-07-03 22:17 | ED.LOWEXIN ---
HPI - Extremity Injury (Lower) General Chief Complaint: Extremity Injury, Lower Stated Complaint: sent from [facility] for US of right leg Time Seen by Provider: 07/03/25 20:28 Source: patient Mode of arrival: Ambulatory History of Present Illness HPI Narrative: 79-year-old male has history of chronic right leg swelling, recently increased mid calf medial aspect, no local trauma, no redness or fevers or puncture or new activities. Denies chest pain or shortness of breath. No history of blood clots to legs or lungs recalled. He does not take blood thinner medications. No recent aspirin or other antiplatelet use. Related Data Home Medications ?Medication ?Instructions ?Recorded ?Confirmed MULTIVITAMIN 1 tab PO QDAY ##0 12/08/16 06/11/25 carboxymethylcellulose sodium 0.5 1 drp EYE-BOTH PRN PRN Dry Eyes ##0 02/22/18 06/11/25 % eye drops (Refresh Tears) docusate sodium 100 mg capsule 100 mg PO BID 08/04/24 06/11/25 (Dulcolax Stool Softener (docusate)) hydrochlorothiazide 12.5 mg tablet 12.5 mg PO DAILY 08/04/24 06/11/25 latanoprost 0.005 % eye drops 1 drp EYE-BOTH QPM 08/04/24 06/11/25 timolol maleate 0.5 % eye drops 1 drp EYE-BOTH BID 08/04/24 06/11/25 vit B complex 100 combo no.2 100 1 tab PO DAILY 08/04/24 06/11/25 mg tablet,extended release (B-100 Complex ER) loratadine 10 mg capsule (Allergy 10 mg PO DAILY 03/30/25 06/11/25 Relief (loratadine)) Previous Rx's ?Medication ?Instructions ?Recorded tadalafil 5 mg tablet 5 mg PO DAILY #90 tabs 06/11/25 Allergies Allergy/AdvReac Type Severity Reaction Status Date / Time fluticasone (From FLOVENT Allergy Severe TROUBLE Verified 06/08/25 10:01 DISKUS) BREATHING Penicillins Allergy Severe SWELLING Verified 06/08/25 10:01 lisinopril (LISINOPRIL) AdvReac Severe IMPAIRED Verified 06/08/25 10:01 BREATHING mold (MOLD) AdvReac Severe IMPAIRED Verified 06/08/25 10:01 BREATHING sulfamethoxazole (From AdvReac Severe Dizziness Verified 06/08/25 10:01 Bactrim) trimethoprim (From Bactrim) AdvReac Severe Dizziness Verified 06/08/25 10:01 tamsulosin AdvReac Intermediate Weakness Verified 06/08/25 10:03 chlorine bleach AdvReac Severe impaired Uncoded 06/08/25 10:01 breathing Patient History Medical History Gross hematuria Left hydrocele Scrotal sac enlargement Incomplete emptying of bladder History of urinary retention BPH with obstruction/lower urinary tract symptoms Indwelling Reed catheter present Urinary retention Hx of primary hypertension Hx of chronic arthritis Bilateral renal stones Surgical History History of urologic surgery (04/10/25) Hx of cystoscopy (02/28/25) Hx of lithotripsy (02/09/25) Hx of circumcision Hx of umbilical hernia repair History of colon surgery Social History marital status: number of children: 2 household members: spouse Smoking Status: Former smoker alcohol intake: current caffeine: Yes Type(s) of exercise: none Smoking Status: Former smoker alcohol intake frequency: holidays/special occasions only Exam Narrative Exam Narrative: GENERAL: Well-developed patient, in mild distress. HEAD: Atraumatic. Normocephalic. EYES: Pupils equal round and reactive. Extraocular motions intact. No scleral icterus. No injection or drainage. ENT: Nose without bleeding, purulent drainage. Throat without erythema, tonsillar hypertrophy or exudate. Airway patent. NECK: Trachea midline. Non tender CARDIOVASCULAR: Regular rate and rhythm without murmurs, gallops, or rubs. RESPIRATORY: Clear to auscultation. Breath sounds equal bilaterally. No wheezes, rales, or rhonchi. GASTROINTESTINAL: Abdomen soft, non-tender, nondistended. EXTREMITIES: Right leg with mid calf area of linear erythema, palpable, likely phlebitis. Negative tenderness to posterior calf. BACK: Nontender without deformity or crepitance. No flank tenderness. NEURO: AOx3. Motor functions grossly nonfocal. SKIN: No rash or erythema of visible areas Initial Vital Signs Initial Vital Signs: Vital Signs Temperature 97.5 F L 08/05/25 16:41 Pulse Rate 61 07/03/25 16:41 Respiratory Rate 18 07/03/25 16:41 Blood Pressure 142/80 H 07/03/25 16:41 Pulse Oximetry 98 07/03/25 16:41 Oxygen Delivery Method Room Air 07/03/25 16:41 Course Orders Ordered: ED Orders 07/03/25 20:55 CBC Auto Diff [Complete Blood Count AUTO DIFF] Stat CMP [Comprehensive Metabolic Panel] Stat Prothrombin Time INR Stat Discontinued Medications Aspirin (Aspirin 81 Mg Chew Tab) 324 mg PO NOW ONE Stop: 07/03/25 23:20 Last Admin: 07/03/25 23:32 Dose: 324 mg Documented By: HARSHIL Vital Signs Vital signs: Vital Signs - 8 hr 07/03/25 20:01 07/03/25 20:01 07/03/25 20:30 Pulse Rate 60 59 L Respiratory Rate 14 17 Blood Pressure 167/72 H Pulse Oximetry 93 95 Oxygen Delivery Method Room Air Room Air 07/03/25 20:31 07/03/25 20:31 07/03/25 21:09 Pulse Rate 57 L Respiratory Rate 19 17 Blood Pressure 131/63 Pulse Oximetry 95 Oxygen Delivery Method Room Air 07/03/25 21:10 07/03/25 21:10 07/03/25 21:30 Pulse Rate 63 61 Respiratory Rate 21 18 Blood Pressure 160/73 H Pulse Oximetry 97 97 Oxygen Delivery Method 07/03/25 21:31 07/03/25 21:31 07/03/25 22:00 Pulse Rate 60 59 L Respiratory Rate 17 16 Blood Pressure 130/62 Pulse Oximetry 95 96 Oxygen Delivery Method 07/03/25 22:01 07/03/25 22:01 07/03/25 23:32 Pulse Rate 59 L 55 L Respiratory Rate 20 Blood Pressure 134/61 Pulse Oximetry 94 94 Oxygen Delivery Method Room Air Room Air MDM - Extremity Injury (Lower) Lab Data Attestation: I reviewed the patient's lab results. Lab results narrative: White blood cell count 6000, hemoglobin 15.8, platelets adequate. Glucose 107. Normal renal function. Liver functions unremarkable. PT/INR 1.1 normal. 07/03/25 20:55 07/03/25 20:55 Labs: Lab Results 07/03/25 Range/Units 20:55 WBC 6.0 (4.5-11.0) X10^3/uL RBC 5.22 (4.5-5.9) X10^6/uL Hgb 15.8 (13.5-17.5) g/dL Hct 47.1 (41-53) % MCV 90.1 (80-100) fL MCH 30.2 (26-34) PG MCHC 33.5 (30-36) % RDW 13.7 (11.6-14.8) % Plt Count 241 (150-400) X10^3/uL Neut % (Auto) 55.1 (50-75) % Lymph % (Auto) 33.3 (25-40) % Ogle % (Auto) 7.0 (3-14) % Eos % (Auto) 3.8 (2-4) % Baso % (Auto) 0.8 (0-2) % Neut # (Auto) 3300 (7446-4618) /uL Lymph # (Auto) 2000 (0633-4316) /uL Ogle # (Auto) 400 (0-900) /uL Eos # (Auto) 200 (0-450) /uL Baso # (Auto) 0 (0-100) /uL PT 12.5 (9.4-12.5) SECONDS INR 1.1 (0.9-1.3) Sodium 136 L (137-145) mmol/L Potassium 3.8 (3.4-5.1) mmol/L Chloride 101 (98-107) mmol/L Carbon Dioxide 29 (22-32) mmol/L BUN 16 (9-20) mg/dL Creatinine 0.79 (0.66-1.25) mg/dL Estimated GFR > 60 (>60) mL/min BUN/Creatinine Ratio 20.3 (6-22) Glucose 107 H (70-99) mg/dL Calcium 10.5 H (8.4-10.2) mg/dL Total Bilirubin 0.7 (0.2-1.3) mg/dL AST 28 (17-59) IU/L ALT 18 (<50) IU/L Alkaline Phosphatase 69 (38-126) U/L Total Protein 6.5 (6.3-8.2) g/dL Albumin 4.2 (3.5-5.0) g/dL Globulin 2.3 (1.7-4.1) g/dL Albumin/Globulin Ratio 1.8 (1.0-2.8) Imaging Data Ultrasound Doppler venous right lower extremity: Radiologist's Impression: [address] [address] Ultrasound Report Signed Patient: Kip Quiles MR#: [id number] : 1945 Acct:[id number] Age/Sex: 79 / M Date of Service: 07/03/25 Loc: ED Accession Number: [id number] Procedure: US perip venous low extrem rt Ordering Provider: Manav Sterling MD PROCEDURE: US PERIPH VENOUS LOW EXTREM RT INDICATIONS: swelling TECHNIQUE: Real-time imaging, as well as color and pulse Doppler interrogation, were performed of the lower extremity deep veins from the inguinal ligament to the popliteal fossa, with documentation of the visualized calf veins. COMPARISON: None. FINDINGS: The common femoral, femoral, popliteal, and the visualized calf veins are normally compressible, and free of intraluminal thrombus. Color and pulse Doppler demonstrate normal phasic intraluminal flow. There is normal augmentation response to distal compression maneuver. Superficial venous thrombosis can be seen within the greater saphenous vein distally. Significant venous reflux can be seen, measuring greater than 4 seconds. IMPRESSION: No findings of lower extremity deep venous thrombosis. Superficial venous thrombosis can be seen involving the distal greater saphenous vein. Dictated by: Dandre Gregorio M.D. on 07/03/2025 at 16:22 Approved by: Dandre Gregorio M.D. on 07/03/2025 at 16:23 [facility] Narrative Medical decision making narrative: 79-year-old with nontraumatic right medial thigh pain and swelling. Linear erythema, palpable cord, possible DVT versus superficial phlebitis, seems less likely cellulitis. No fever. Labs pending. Ultrasound vascular study ordered. Lab data: White blood cell count 6000, hemoglobin 15.8, platelets adequate. Glucose 107. Normal renal function. Liver functions unremarkable. PT/INR 1.1 normal. Ultrasound right lower extremity venous Doppler. Impressions: ?No findings of lower extremity deep venous thrombosis. Superficial venous thrombosis can be seen involving the distal greater saphenous vein. See radiology report Copy of ultrasound shared with patient. We discussed venous thrombosis, distal greater saphenous vein not in the deep system, no chronic oral anticoagulation indicated at this time. Consider taking oral aspirin antiplatelet and applying warm packs and lower limb elevation. Consider recheck vascular ultrasound in the next 2-3 days to see if there is clot propagation/progression. Oral anticoagulation could be considered if enters the common femoral, or approximates the common femoral vein junction. They expressed understanding. Discharged home. Return precautions discussed. Discharge Plan Departure Patient Disposition: Home Clinical Impression: Superficial vein thrombosis Activity Restrictions/Additional Instructions: Right leg medial calf area of swelling with palpable cord, likely thrombosis by clinical exam. Seems less likely cellulitis infection. No fever. Ultrasound vascular study did not show clot in the deep vein system. It did show clot in the greater saphenous vein, but in the distal and not proximal (in a location more toward the foot then toward the knee). Current location not considered to be at high-risk of embolization such as blood clots going to the lungs, that can be seen with deep vein thromboses. It is important to reassess superficial venous clots however to make sure they are not propagating. Consider repeat venous Doppler ultrasound study in 2 days to make sure it is not increasing in size or changing in location. Take aspirin daily, warm compresses locally applied. Recheck in this/nearest emergency department for any change worsening symptoms or any concerns prior. Prescriptions: No Action MULTIVITAMIN 1 tab PO QDAY Qty: 0 carboxymethylcellulose sodium [Refresh Tears] 15 ML drops 1 drp EYE-BOTH PRN PRN (Reason: Dry Eyes) Qty: 0 timolol maleate 0.5 % drops 1 drp EYE-BOTH BID latanoprost 0.005 % drops 1 drp EYE-BOTH QPM docusate sodium [Dulcolax Stool Softener (dss)] 100 mg capsule 100 mg PO BID hydrochlorothiazide 12.5 mg tablet 12.5 mg PO DAILY B-100 Complex 100 mg tablet extended release 1 tab PO DAILY tadalafil 5 mg tablet 5 mg PO DAILY Qty: 90 3RF Allergy Relief (loratadine) 10 mg capsule 10 mg PO DAILY Referrals: Tom Owen DO [Primary Care Provider, Family Practice] Stand Alone Forms: Patient Portal/API
[2025-07-03] MEDS: ASPIRIN 81 MG CHEW TAB 324 MG PO (23:32)
== END 2025-07-03 23:40 | disposition home or self-care (01) ==
PROVIDERS: Emergency Provider Emergency Medicine; PCP Family Medicine
DX: I82.811 Embolism and thrombosis of superficial veins of right lower extremity (principal)
CPT/HCPCS: 80053; 85025; 85610; 93971; 99283; 99284

== ENCOUNTER → 2025-07-06 14:39 | Outpatient (CLI) | payer MEDICARE, OTHER, SELFPAY ==
[2025-04-10 21:26] VITALS: BMI 30.2
--- NOTE | 2025-07-06 14:41 | DI.US.S_ITS ---
PROCEDURE: US PERIP VENOUS LOW EXTREM RT INDICATIONS: 3 DAY F/U OF DIST GSV THROMBUS TECHNIQUE: Real-time imaging, as well as color and pulse Doppler interrogation, were performed of the lower extremity deep veins from the inguinal ligament to the popliteal fossa, with documentation of the visualized calf veins. COMPARISON: [facility], [facility] VENOUS LOW EXTREM RT, 07/03/2025, 17:02. FINDINGS: The common femoral, femoral, popliteal, and the visualized calf veins are normally compressible, and free of intraluminal thrombus. Color and pulse Doppler demonstrate normal phasic intraluminal flow. There is normal augmentation response to distal compression maneuver. There is again seen occlusive thrombus in the greater saphenous vein distally. IMPRESSION: No findings of lower extremity deep venous thrombosis. Stable superficial thrombosis in the greater saphenous vein. Dictated by: Kamaljit Valentin M.D. on 07/07/2025 at 17:25 Approved by: Kamaljit Valentin M.D. on 07/07/2025 at 17:26
== END ==
LOC: US 14:40
PROVIDERS: PCP Family Medicine; Referring Provider Nurse Practitioner Family; Visit Provider Nurse Practitioner Family
DX: I82.811 Embolism and thrombosis of superficial veins of right lower extremity (principal); M79.661 Pain in right lower leg
CPT/HCPCS: 93971